=== PATIENT | male | born 1980 | race Caucasian/White ===

== ENCOUNTER 2023-10-11 14:31 | Outpatient (CLI) | payer BC, SELFPAY ==
--- NOTE | ~2023-10-11 | XR_ITS ---
XR shoulder LT min 2V Ordering provider: Perri Morrow, PAC History: . M25.512 - Pain in left shoulder, NKI . Comparison: None. FINDINGS: BONES: No acute fracture or dislocation. JOINT SPACES: The acromioclavicular joint is normal. The glenohumeral joint is normal. SOFT TISSUES: Normal. IMPRESSION: No acute osseous abnormality left shoulder. Reviewed, dictated and finalized at location A.
== END 2023-10-11 14:32 | disposition home or self-care (01) ==
PROVIDERS: PCP Family Medicine; Visit Provider Physician Assistant
DX: M25.512 Pain in left shoulder (principal)
CPT/HCPCS: 73030

== ENCOUNTER 2024-11-13 17:07 | Outpatient (CLI) | payer BC, SELFPAY ==
--- NOTE | ~2024-11-13 | CT_ITS ---
EXAMINATION: CT abdomen pelvis w con DATE: 11/13/2024 17:37 INDICATION: Right lower quadrant abdominal pain TECHNIQUE: Computed tomography (CT) of the abdomen and pelvis was performed with 100 mL Omnipaque-350 intravenous contrast. Automated exposure control and iterative reconstruction technique were employe d. The dose-length product was 1624.28 mGy-cm. COMPARISON: None FINDINGS: Subtle bands of discoid atelectasis/scarring in the left lower lobe and lingula. No pleural effusion. Heart size is normal. No pericardial effusion. Mild bilateral gynecomastia. Likely mild diffuse hepa tic steatosis although specificities decreased in the presence of intravenous contrast. Gallbladder, spleen, pancreas, bilateral adrenal glands and right kidney are normal. 3.7 cm cyst at the lower pole the left kidney. There is prominent inflammatory stranding surrounding the pancreas and the tip the cecum where there is associated edematous wall thickening. There are multiple calcite appendicoliths within the appendix which is dilated to 1.8 cm maximal diameter. There residual small foci of extralu gail gas in the right hemipelvis along the appendix, cecum and terminal ileum. Findings are most con sistent with perforated appendicitis. Minimal amount of free fluid in the deep pelvis. No evident org anized abscess. Bladder is normal. No pathologically enlarged abdominal or pelvic lymphadenopathy. Sm all fat-containing left inguinal hernia. Mild spondylosis in the lumbar and visualized mid to lower t horacic spine. IMPRESSION: 1. Perforated acute appendicitis. Dr. Moody discussed these findings with Dr. Melara at 6:00 PM. Reviewed, dictated and finalized at location A. IMPRESSION: 1. Perforated acute appendicitis. Dr. Moody discussed these findings with Dr Emery Melara at 6:00 PM.
--- OUTSIDE RECORDS SUMMARY | 2024-11-13 16:53 | XMS_ITS | Encounter Summary ---
Author Organization [facility] [employer] [facility] Address [address] [place] [address] Care Team Providers Care Recycle Driver Name Role Phone Irene Cade MD Primary Care Provider [phone] Encounter Details Date Type Department Care Team (Late st Contact Info) Description 08/29/2018 Lab Requisition 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 Gender Identity Not on file Sexual Orientation Not on file documented as of this encounter Plan of Treatment Not on file documented as of this encounter Procedures Procedure Name Priority Date/Time Associated Diagnosis Comments HEPATITIS B SURFACE AB, QUANT Routine 08/29/2018 3:30 PM CDT Encounter for pre-employment examination RUBEOLA IGG Routine 08/29/2018 3:30 PM CDT Encounter for pre-employment examination RUBELLA IGG Routine 08/29/2018 3:30 PM CDT Encounter for pre-employment examination VARICELLA ZOSTER IGG Routine 08/29/2018 3:30 PM CDT Encounter for pre-employment examination MUMPS IGG ANTIBODY Routine 08/29/2018 3: 30 PM CDT Encounter for pre-employment examination documented in this encounter Results * VARICELLA ZOSTER IGG (08/29/2018 3:30 PM CDT) VZV IGG Positive 08/30/2018 10:45 PM CDT [facility] Comment: Results suggest response to immunization or prior exposure to the virus. REFERENCE VALUE Vaccinated: Positive (>=1.1 AI) Unvaccinated: Negative (<=0.8 AI) VARICELLA IGG INDEX 5.7 08/30/2018 10:45 PM CDT [facility] Comment: Test Performed by: [facility] [place] [address] Blood Collection / Unknown 08/29/2018 3:30 PM CDT 08/29/2018 9:19 PM CDT Ernie Mann MD CHEMISTRY ORDERABLES Final R esult [facility] * RUBELLA IGG (08/29/2018 3:30 PM CDT) RUBELLA IGG IMMUNE Immune - Positive 08/29/2018 10:14 PM CDT [facility] Blood Collection / Unknown 08/29/2018 3:30 PM CDT 08/29/2018 9:19 PM CDT Narrative [facility] - 08/29/2018 10:14 PM CDT A positive result suggests response to immunization or prior exposure to the virus. Ernie Mann MD CHEMISTRY ORDERABLES Final R esult [facility] CLIA# [id number] [address] [place] [address] * MUMPS IGG ANTIBODY (08/29/2018 3:30 PM CDT) MUMPS IGG AB Positive 08/30/2018 10:45 PM CDT [facility] Comment: Results suggest response to immunization or prior exposure to the virus. REFERENCE VALUE Vaccinated: Positive (>=1.1 AI) Unvaccinated: Negative (<=0.8 AI) MUMPS IGG INDEX 3.7 9 10:45 PM CDT [facility] Comment: Test Performed by: [address] [address] Blood Collection / Unknown 08/29/2018 3:30 PM CDT 08/29/2018 9:19 PM CDT Ernie Mann MD CHEMISTRY ORDERABLES Final R esult [facility] * RUBEOLA IGG (08/29/2018 3:30 PM CDT) RUBEOLA IGG Positive 08/30/2018 10:45 PM CDT [facility] Comment: Results suggest response to immunization or prior exposure to the virus. REFERENCE VALUE Vaccinated: Positive (>=1.1 AI) Unvaccinated: Negative (<=0.8 AI) RUBEOLA IGG INDEX 4.8 08/30/2018 10:45 PM CDT [facility] Comment: Test Performed by: [address] [address] Blood Collection / Unknown 08/29/2018 3:30 PM CDT 08/29/2018 9:19 PM CDT Ernie Mann MD CHEMISTRY ORDERABLES Final R esult [facility] * (ABNORMAL) HEPATITIS B SURFACE AB, QUANT (08/29/2018 3:30 PM CDT) HEPATITIS B SURF AB,QN <4.0 mlU/mL 08/29/2018 10:18 PM CDT [facility] HEPATITIS B SURFACE AB INTERP Non-reacti ve(A) See Interp 08/29/2018 10:18 PM CDT [facility] Blood Collection / Unknown 08/29/2018 3:30 PM CDT 08/29/2018 9:19 PM CDT Narrative [facility] - 08/29/2018 10:18 PM CDT Patient does not have immunity to Hepatitis B virus. This assay is used to determine immune status to Hepatitis B as greater than or equal to 10 mIU/mL as per CDC guidelines (MMWR:vol 55: RR-16, 2006). Ernie Mann MD CHEMISTRY ORDERABLES Final R esult Performing Organization Address City/[facility]/ZIP Co de Phone Number [facility] CLIA# [id number] [address] [place] [address] documented in this encounter Visit Diagnoses Diagnosis Encounter for pre-employment examination Health examination of defined subpopulation documented in this encounter Care Teams Recycle Driver Relationship Specialty Start Date End Date Irene Cade MD [address] [place] [address] PCP - General Family Practice 05/22/19 documented as of this encounter
--- OUTSIDE RECORDS SUMMARY | 2024-11-13 16:53 | XMS_ITS | Clinical Summary ---
Author Organization [facility] Address [address] [place] [address] Care Team Providers Care Principal Technical Writer Name Role Phone Yosi Melara MD Primary Care Provider [phone] Social History Tobacco Use Types Packs/Day Years Used Date Smoking Tobacco: Never Assessed Sex and Gender Information Value Date Recorded Sex Assigned at Not on file Legal Sex Male 7:36 PM CDT Gender Identity Not on file Sexual Orientation Not on file Plan of Treatment Health Maintenance Due Date Last Done Comments Annual Physical 02/02/1984 Hepatitis C 1999 DTaP, Tdap and Td Vaccines ( 1 - Tdap) 02/02/2000 Hepatitis B Vaccines (1 of 3 - 19+ 3-dose series) 02/02/2000 HPV Vaccines (1 - 3-dose SCD M series) 02/02/2008 COVID-19 Vaccine (2023-2 5 season) 2023 Meningococcal B Vaccine Aged Out No l onger eligible based on patient's age to complete this topic Meningococcal Vaccine Aged Out No debbie nellie eligible based on patient's age to complete this topic Pneumococcal Vaccine: Pediat rics (0 to 5 Years) and At-Risk Patients (6 to 49 Years) Aged Out No longer eligible b ased on patient's age to complete this topic RSV Immunizations Under 20 Months Aged Out No longer eligible based on patient's age to complete this topic Care Teams Principal Technical Writer Relationship Specialty Start Date End Date Yosi Melara MD [address] [place] [phone] PCP - General 12/27/14
--- OUTSIDE RECORDS SUMMARY | 2024-11-13 16:54 | XMS_ITS | Clinical Summary ---
Author Organization [facility] Address [address] [address] Phone Care Team Providers Care Inspector Water Pollution Control Name Role Phone Irene Cade MD Primary Care Provider [phone] Allergies Active Allergy Reactions Criticality Noted Date Comments Penicillins Rash Low 02/05/2016 Medications No known medications Active Problems Problem Noted Date Diagnosed Date Mixed hyperlipidemia 05/22/2019 Immunizations Immunization Administration Dates Next Due Influenza Seasonal Unspecified Formulation IM ,02/06/2019 Family History Medical History Relation Name Comments Healthy Daughter COPD Father High Cholesterol Father Unknown Maternal Grandfather Unknown Maternal Grandmother Diabetes Mother Unknown Paternal Grandfather Unknown Paternal Grandmother Healthy Son 1 Healthy Son 2 Relation Name Status Comments Daughter Alive Father Alive Maternal Grandfather Maternal Grandmother Mother Alive Paternal Grandfather Paternal Grandmother Son 1 Alive Son 2 Alive Social History Tobacco Use Types Packs/Day Years Used Date Smoking Tobacco: Never Smokeless Tobacco: Never Alcohol Use Standard Drinks/Week Comments Yes 0 (1 standard drink = 0.6 oz pur e alcohol) Sex and Gender Information Value Date Recorded Sex Assigned at Not on file Legal Sex Male 2:44 PM PERSONAL INJURY LITIGATION PARALEGAL Gender Identity Not on file Sexual Orientation Not on file 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 file Not on file Not on f ile Last Filed Vital Signs Vital Sign Reading Time Taken Comments Blood Pressure 112/64 05/22/2019 1:19 PM PERSONAL INJURY LITIGATION PARALEGAL Pulse 76 05/22/2019 1:19 PM PERSONAL INJURY LITIGATION PARALEGAL Temperature - - Respiratory Rate - - Oxygen Saturation 96% 05/22/2019 1:19 PM PERSONAL INJURY LITIGATION PARALEGAL Inhaled Oxygen Concentration - - Weight 115.2 kg (254 lb) 05/22/2019 1:19 PM PERSONAL INJURY LITIGATION PARALEGAL Height 177.8 cm (5' 10) 05/22/2019 1:19 PM PERSONAL INJURY LITIGATION PARALEGAL Body Mass Index 36.45 05/22/2019 1:19 PM PERSONAL INJURY LITIGATION PARALEGAL Plan of Treatment Health Maintenance Due Date Last Done Comments HPV VACCINES (1 - Male 3-dose series) 02/02/1996 DTAP/TDAP/TD VACCINES (1 - Tdap) 02/02/2000 HEPATITIS B VACCINES (1 of 3 - 19+ 3-dose series) 02/02/2000 INFLUENZA VACCINE (#1) 2024 02/22/2019, 2018 Care Teams Inspector Water Pollution Control Relationship Specialty Start Date End Date Irene Cade MD [address] [place] [address] PCP - General Family Practice 05/22/19
--- OUTSIDE RECORDS SUMMARY | 2024-11-13 16:54 | XMS_ITS | Clinical Summary ---
Author Organization [facility] Address [address] [place] [address] Phone Care Team Providers Care Biztalk Architect Name Role Phone Yosi Melara MD Primary Care Provider [phone] Allergies Active Allergy Reactions Criticality Noted Date Comments Penicillins Unknown 02/05/2016 Medications tamsulosin (FLOMAX) 0.4 MG Capsule 3 2016 Active zolpidem (AMBIEN) 10 MG Tablet TK 1/2 TO 1 T PO QHS PRN 0 2016 Active tamsulosin (FLOMAX) 0.4 MG Capsule Take 1 Cap by mouth daily. 90 Cap 3 02/05/2016 Active Active Problems Problem Noted Date Diagnosed Date Orchitis, epididymitis, and epididymo-orchitis 1 Family History Medical History Relation Name Comments No Known Problems Father No Known Problems Mother Relation Name Status Comments Father Alive Mother Alive Social History Tobacco Use Types Packs/Day Years Used Date Smoking Tobacco: Never Tobacco Cessation:Counseling Given: No Alcohol Use Standard Drinks/Week Comments Yes 0 (1 standard drink = 0.6 oz pur e alcohol) Sexually Active Control Partners Comments Yes Sex and Gender Information Value Date Recorded Sex Assigned at Not on file Legal Sex Male 2:46 PM CDT Gender Identity Not on file Sexual Orientation Not on file Last Filed Vital Signs Vital Sign Reading Time Taken Comments Blood Pressure 120/78 02/05/2016 3:02 PM CDT Pulse 77 02/05/2016 3:02 PM CDT Temperature 36.8 C (98.2 F) 02/05/2016 3:02 PM CDT Respiratory Rate 18 02/05/2016 3:02 PM CDT Oxygen Saturation 98% 02/05/2016 3:02 PM CDT Inhaled Oxygen Concentration - - Weight 99.8 kg (220 lb) 02/05/2016 3:02 PM CDT Height 177.8 cm (5' 10) 02/05/2016 3:02 PM CDT Body Mass Index 31.57 02/05/2016 3:02 PM CDT Plan of Treatment Health Maintenance Due Date Last Done Comments Hepatitis C Virus (HCV) Screening 1981 TdaP Immunization 1981 Human Papillomavirus (HPV) Immunization (1 - Male 3-dose series) 02/02/1996 Hepatitis B Immunization (1 of 3 - 19+ 3-dose series) 02/02/2000 SARS-COV-2 Immunization (1 - season) 2023 Influenza Immunization (#1) 2024 Respiratory Syncytial Virus (RSV) Immunization (Adult) (1 - 1-dose 75+ series) 02/02/2056 Meningococcal Immunization (ACWY) Aged Out No longer eligible based on patient's age to complete this topic Pneumococcal Immunization Combined Aged Out No longer eligible based on patient's age to complete this topic Rotavirus Immunization Aged Out No lo nger eligible based on patient's age to complete this topic Insurance MEDICAID [employer] Care Teams Biztalk Architect Relationship Specialty Start Date End Date Yosi Melara MD [address] [place] [phone] PCP - General Family Medicine 02/05/16
--- OUTSIDE RECORDS SUMMARY | 2024-11-13 17:11 | XMS_ITS | Continuity of Care Document ---
Author Organization [facility] Address [address] [place] [address] Phone Care Team Providers Care Paper Cutter Name Role Phone Regine Estevez PT Unavailable Unavailab le Procedures Procedure Date Therapeutic Activities Neuromuscular Re-Ed Manual Therapy Therapeutic Exercise Therapeutic Activities Therapeutic Exercise Neuromuscular Re-Ed Manual Therapy Therapeutic Activities Neuromuscular Re-Ed Therapeutic Exercise Manual Therapy Therapeutic Activities Neuromuscular Re-Ed Therapeutic Exercise Manual Therapy Therapeutic Activities Neuromuscular Re-Ed Therapeutic Exercise Manual Therapy PT Evaluation Moderate Complexity Therapeutic Activities Therapeutic Exercise Manual Therapy Advance Directives Directive Yes / No Effective Date File Name No Information Encounters Encounter Description Practice Location Reason(s) For Visit Diagnoses Date Provider Providers Copied on Encounter [facility], [address], [place], [place], [id number], tel:[phone] [place] No Information Bandar Weiner. . Referring Provider: Perri Morrow, [address] [facility], [place], [address]. tel:[phone] [facility] [address] [facility], [place], [place], [id number], tel:[phone] [place] No Information Dockins-H all Regine. . Referring Provider: Perri Morrow, [address] [facility], [place], [address]. tel:[phone] [facility] [address], [place], [place], [id number], tel:[phone] [place] No Information Dockins-H all Regine. . Referring Provider: Perri Morrow, [place], [address]. tel:[phone] [facility] [address] [place] [address], [place], [place], [id number], tel:[phone] [place] No Information Dockins-H all Regnie. . Referring Provider: [place], [address]. tel:[phone] [facility] [address] [address], [place], [place], [id number], tel:[phone] [place] No Information Dockins-H all Regine. . Referring Provider: [place], [address]. tel:[phone] [facility] [address] [address], [place], [place], [id number], tel:[phone] [place] No Information Dockins-H all Regine. . Referring Provider: [place], [address]. tel:[phone] Family History Family Member Type Diagnosis Age At Onset No Information Payers Payer name Insurance type Covered constitution party ID Minda byrne(s) [facility] [id number] Social History Type Description Quantity Date Captured Comments Sex Male Smoking Status No Information Chief Complaint And Reason For Visit No Information Reason For Referral Reason For Referral No Information History Of Present Illness Encounter Date Complaint History Of Prese nt Illness No Information Functional Status Date Functional Assessmen t No Information Instructions Date Instruction Additional Infor mation No Information Assessments Type Assessment Date No Information Patient Care Teams Name Effective Dates (start - stop) Status Members No Information
[2024-11-13 17:52] LABS: Hematocrit 43.4 % (42.0-52.0); Hemoglobin 14.5 g/dL (14.0-18.0); Immature Granulocyte Percent A 0.4 % (0-0.5); Lymphocytes Absolute Auto 2.39 K/mm3 (0.9-3.2); Mean Corpuscular HGB Conc 33.4 g/dl (32-36); Mean Corpuscular Hemoglobin 30.5 pg (26-34); Mean Corpuscular Volume 91.4 fl (80-100); Nucleated Red Blood Cells Absolute Auto 0.000 K/mm3 (0.0-0.012); Nucleated Red Blood Cells Perc 0.0 % (0.0-0.2); Platelet Count Result 195 k/mm3 (150-375); Red Blood Count 4.75 M/mm3 (4.6-6.20); White Blood Count 13.5 K/mm3 (4.5-10.0)
== END 2024-11-13 17:08 | disposition home or self-care (01) ==
PROVIDERS: PCP Family Medicine; Visit Provider Family Medicine
DX: R10.31 Right lower quadrant pain (principal)
CPT/HCPCS: 36415; 74177; 85025; Q9967

== ENCOUNTER 2024-11-13 18:09 | Inpatient (IN) | payer BC, SELFPAY ==
[2024-11-13] VITALS (11 sets, daily range): BP systolic 110–145; BP diastolic 53–80; PULSE 94–112; RESP 16–26; TEMP 36.7–39.2; O2SAT 92–100; BMI 40.3
--- NOTE | ~2024-11-13 | XR_ITS ---
XR chest 2V 11/15/2024 11:21 Indication: Postop fever. Cough. Weakness. Procedure: 2 view chest Comparison: 07/30/2015 Findings: Left basilar airspace disease may represent atelectasis or developing pneumonia. Shallow in spiration. Right lung clear. Heart size normal for technique. Impression: 1: Left basilar airspace disease may represent atelectasis or developing pneumonia. Reviewed, dictated and finalized at location A. Impression: 1: Left basilar airspace disease may represent atelectasis or developing pneumo tamie.
--- OUTSIDE RECORDS SUMMARY | 2024-11-13 18:12 | XMS_ITS | Clinical Summary ---
Author Organization [facility] Address [address] [place] [address] Phone Care Team Providers Care Retort Forker Name Role Phone Yosi Melara MD Primary Care Provider Allergies Active Allergy Reactions Criticality Noted Date [...] Insurance MEDICAID [employer] Care Teams Retort Forker Relationship Specialty Start Date End Date Yosi Melara MD [address] [place] [phone] PCP - General Family Medicine 02/05/16
--- OUTSIDE RECORDS SUMMARY | 2024-11-13 18:12 | XMS_ITS | Clinical Summary ---
Author Organization [facility] Address [address] [place] [address] Care Team Providers Care Shirt Closer Name Role Phone Yosi Melara MD Primary Care Provider [phone] Social History Tobacco Use Types Packs/Day Years [...] age to complete this topic Care Teams Shirt Closer Relationship Specialty Start Date End Date Yosi Melara MD [address] [place] [address] PCP - General 12/27/14
--- OUTSIDE RECORDS SUMMARY | 2024-11-13 18:12 | XMS_ITS | Continuity of Care Document ---
Author Organization [facility] Address [address] [place] [address] Phone Care Team Providers Care Correction Warden Name Role Phone Regine Estevez PT Unavailable [...] Diagnoses Date Provider Providers Copied on Encounter [facility], [address], [place], [place], [id number], tel:[phone] [place] No Information Bandar Weiner. . Referring Provider: Perri Morrow, [address] [facility], [place], [address]. tel:[phone] [facility] [address] [facility], [place], [place], [id number], tel:[phone] [place] No Information Dockins-H all Regine. . Referring Provider: Perri Morrow, [address] [facility], [place], [address]. tel:[phone] [facility] [address], [place], [place], [id number], tel:[phone] [place] No Information Dockins-H all Regine. . Referring Provider: Perri Morrow, [place], [address]. tel:[phone] [facility] [address] [place] [address], [place], [place], [id number], tel:[phone] [place] No Information Dockins-H all Regine. . Referring Provider: [place], [address]. tel:[phone] [facility] [address] [address], [place], [place], [id number], tel:[phone] [place] No Information Dockins-H all Regine. . Referring Provider: [place], [address]. tel:[phone] [facility] [address] [address], [place], [place], [id number], tel:[phone] [place] No Information Dockins-H all Regine. . Referring Provider: [place], [address]. tel:[phone] Family History Family Member Type Diagnosis Age At Onset No Information Payers Payer name Insurance type Covered alliance party ID Minda byrne(s) [facility] [id number] Social History Type Description Quantity Date Captured [...]
--- OUTSIDE RECORDS SUMMARY | 2024-11-13 18:12 | XMS_ITS | Clinical Summary ---
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 Not on f ile Last Filed Vital Signs Vital Sign Reading Time Taken Comments Blood Pressure 112/64 05/22/2019 1:19 PM HARDWARE TEST ENGINEER Pulse 76 05/22/2019 1:19 PM HARDWARE TEST ENGINEER Temperature - - Respiratory Rate - - Oxygen Saturation 96% 05/22/2019 1:19 PM HARDWARE TEST ENGINEER Inhaled Oxygen Concentration - - Weight 115.2 kg (254 lb) 05/22/2019 1:19 PM HARDWARE TEST ENGINEER Height 177.8 cm (5' 10) 05/22/2019 1:19 PM HARDWARE TEST ENGINEER Body Mass Index 36.45 05/22/2019 1:19 PM HARDWARE TEST ENGINEER Plan of Treatment Health Maintenance Due Date Last Done Comments HPV VACCINES (1 - Male 3-dose series) 02/02/1996 DTAP/TDAP/TD VACCINES (1 - Tdap) 02/02/2000 HEPATITIS B VACCINES (1 of 3 - 19+ 3-dose series) 02/02/2000 INFLUENZA VACCINE (#1) 2024 02/22/2019, 2018 Care Teams Electric Milkers Installer Relationship Specialty Start Date End Date Irene Cade MD [address] [place] [address] PCP - General Family Practice 05/22/19
--- OUTSIDE RECORDS SUMMARY | 2024-11-13 18:12 | XMS_ITS | Encounter Summary ---
Author Organization [facility] Address [address] [place] [address] Care Team Providers Care Production Control Pegboard Clerk Name Role Phone Irene Cade MD Primary Care Provider [phone] Encounter Details Date Type Department Care Team (Late st Contact Info) Description 08/29/2018 Lab Requisition [facility] Laboratory Services S [facility] [address] [place] [address] [place] [address] [address] [place] [id number] Encounter for pre-employment examination Social History Tobacco Use Types Packs/Day Years Used Date Smoking Tobacco: Never Assessed Sex and Gender Information Value Date Recorded Sex Assigned at Not on file Legal Sex Male 2:44 PM DRUG ENFORCEMENT AGENT Gender Identity Not on file Sexual Orientation [...] VZV IGG Positive 08/30/2018 10:[address] [facility] Comment: Results suggest response to immunization or prior exposure to the virus. REFERENCE VALUE Vaccinated: Positive (>=1.1 AI) Unvaccinated: Negative (<=0.8 AI) VARICELLA IGG INDEX 5.7 08/30/2018 10:[address] [facility] Comment: Test Performed by: [facility] [place] [address] Blood Collection / Unknown 08/29/2018 3:30 PM CDT 08/29/2018 9:19 PM CDT Ernie Mann MD CHEMISTRY ORDERABLES Final R esult [facility] * RUBELLA IGG (08/29/2018 3:30 PM CDT) RUBELLA IGG IMMUNE Immune - Positive 08/29/2018 10:14 PM CDT [facility] [employer] [facility] Blood Collection / Unknown 08/29/2018 3:30 PM CDT 08/29/2018 9:19 PM CDT Narrative [facility] [employer] [facility] - 08/29/2018 10:14 PM CDT A positive result suggests response to immunization or prior exposure to the virus. Ernie Mann MD CHEMISTRY ORDERABLES Final R esult [facility] [employer] [facility] CLIA# [id number] [address] [place] [address] * MUMPS IGG ANTIBODY (08/29/2018 3:30 PM CDT) MUMPS IGG AB Positive 08/30/2018 10:[address] [facility] Comment: Results suggest response to immunization or prior exposure to the virus. REFERENCE VALUE Vaccinated: Positive (>=1.1 AI) Unvaccinated: Negative (<=0.8 AI) MUMPS IGG INDEX 3.7 9 10:[address] [facility] Comment: Test Performed by: [address] [address] Blood Collection / Unknown 08/29/2018 3:30 PM CDT 08/29/2018 9:19 PM CDT Ernie Mann MD CHEMISTRY ORDERABLES Final R esult [facility] * RUBEOLA IGG (08/29/2018 3:30 PM CDT) RUBEOLA IGG Positive 08/30/2018 10:[address] [facility] Comment: Results suggest response to immunization or prior exposure to the virus. REFERENCE VALUE Vaccinated: Positive (>=1.1 AI) Unvaccinated: Negative (<=0.8 AI) RUBEOLA IGG INDEX 4.8 08/30/2018 10:[address] [facility] Comment: Test Performed by: [address] [address] Blood Collection / Unknown 08/29/2018 3:30 PM CDT 08/29/2018 9:19 PM CDT Ernie Mann MD CHEMISTRY ORDERABLES Final R esult [facility] * (ABNORMAL) HEPATITIS B SURFACE AB, QUANT (08/29/2018 3:30 PM CDT) HEPATITIS B SURF AB,QN <4.0 mlU/mL 08/29/2018 10:18 PM CDT [facility] [employer] [facility] HEPATITIS B SURFACE AB INTERP Non-reacti ve(A) See Interp 08/29/2018 10:18 PM CDT [facility] [employer] [facility] Blood Collection / Unknown 08/29/2018 3:30 PM CDT 08/29/2018 9:19 PM CDT Narrative [facility] [employer] [facility] - 08/29/2018 10:18 PM CDT Patient does not have immunity to Hepatitis B virus. This assay is used to determine immune status to Hepatitis B as greater than or equal to 10 mIU/mL as per CDC guidelines (MMWR:vol 55: RR-16, 2006). Ernie Mann MD CHEMISTRY ORDERABLES Final R esult Performing Organization Address City/[facility]/ZIP Co de Phone Number [facility] [employer] [facility] CLIA# [id number] [address] [place] [address] documented in this encounter Visit Diagnoses Diagnosis Encounter for pre-employment examination Health examination of defined subpopulation documented in this encounter Care Teams Production Control Pegboard Clerk Relationship Specialty Start Date End Date Irene Cade MD [address] [place] [address] PCP - General Family Practice 05/22/19 documented as of this encounter
[2024-11-13 18:30] LABS: Hematocrit 45.3 % (42.0-52.0); Hemoglobin 15.3 g/dL (14.0-18.0); Immature Granulocyte Percent A 0.5 % (0-0.5); Lymphocytes Absolute Auto 2.02 K/mm3 (0.9-3.2); Mean Corpuscular HGB Conc 33.8 g/dl (32-36); Mean Corpuscular Hemoglobin 30.7 pg (26-34); Mean Corpuscular Volume 90.8 fl (80-100); Nucleated Red Blood Cells Absolute Auto 0.000 K/mm3 (0.0-0.012); Nucleated Red Blood Cells Perc 0.0 % (0.0-0.2); Platelet Count Result 215 k/mm3 (150-375); Red Blood Count 4.99 M/mm3 (4.6-6.20); White Blood Count 13.1 K/mm3 (4.5-10.0)
--- NOTE | 2024-11-13 18:34 | ED.ABDPAIN ---
HPI - Abdominal Pain General Chief Complaint: Abdominal Pain Stated Complaint: RUQ pain since last night Time Seen by Provider: 11/13/24 18:28 History of Present Illness HPI narrative: 44-year-old male with remote history of type 2 diabetes, hypertension and hyperlipidemia presents emergency department for ruptured appendicitis. Patient states yesterday he began developing pain to his right lower quadrant with associated nausea. Throughout the night he was having difficulty sleeping and states the pain worsened throughout the day. He contacted his PCP, Dr. Melara, who ordered an outpatient stat CT abdomen pelvis which revealed a perforated acute appendicitis. The patient was advised to come directly to the ED. His is at bedside and states his pain is acutely worsened over the past 45 minutes with associated nausea. He denies vomiting, fevers. No prior abdominal surgeries. He states the pain is worse with any movement of his abdomen. Patient states he is not currently on any treatment for diabetes, hypertension and hyperlipidemia because he lost weight and has not required treatment since. Related Data Home Medications ?Medication ?Instructions ?Recorded ?Confirmed ?Last Taken ?Type ascorbic acid (vitamin C) 500 mg mg PO 04/28/22 11/13/24 Unknown History capsule cod liver oil 5 ml PO DAILY 04/28/22 11/13/24 Unknown History magnesium oxide 400 mg PO DAILY 04/28/22 11/13/24 Unknown History mecobalamin (vitamin B12) 1,000 1,000 mcg sublingual DAILY 04/28/22 11/13/24 Unknown History mcg disintegrating tablet,sublingual omega 7-qwa-fqg-fish oil 1,200 mg cap PO 04/28/22 11/13/24 Unknown History (144 mg-216 mg) capsule (Fish Oil) zinc gluconate 100 mg tablet 100 mg PO DAILY 04/28/22 11/13/24 Unknown History Allergies Allergy/AdvReac Type Severity Reaction Status Date / Time latex Allergy Unknown Rash Verified 11/13/24 15:45 Penicillins Allergy Unknown Rash Verified 11/13/24 15:45 Review of Systems Review of Systems: All systems reviewed & are unremarkable except as noted in HPI and below PMFSH Past Medical History Medical History Type 2 diabetes mellitus without complications Insomnia Obesity Perianal venous thrombosis Testicular hypofunction Hyperlipidemia, unspecified Essential (primary) hypertension Family History Family History Grandparent Family history of obesity Diabetes mellitus Mother Family history of obesity Family history of mental disorder Depression Family history of diabetes mellitus in first degree relative Social History Social History Smoking status: Never smoker Alcohol intake: current Substance use: never Lack of Transportation: No Lack of Food: Never True Current Housing: I Have Housing Concerned About Future Housing: No Difficulty Paying Gas/Electric Bills: No Difficulty Paying for Meds: No Currently Unemployed: No Difficulty w/ Childcare or Family Care: No Living arrangements: with family Occupation/Education: occupation Gender identity (if verbalized by the patient): Male Sexual Orientation (if Verbalized by the Patient): Straight or Heterosexual Spiritual care concerns: No Exam Narrative: GENERAL: Ill-appearing, diaphoretic HEAD: Normocephalic, atraumatic. EYES: PERRLA and EOMI. ENT: Nares clear, no rhinorrhea or epistaxis. Mucous membranes moist. NECK: Supple. CHEST: Clear to auscultation. No respiratory distress. HEART: Regular rate and rhythm. No murmur heard. Normal peripheral pulses. ABDOMEN: Quiet bowel sounds. Diffuse abdominal tenderness with positive rebound. Voluntary guarding. No rigidity. Negative heel tap. EXTREMITIES: Normal range of motion. No edema. SKIN: Warm, dry, no rash. NEURO: No focal deficits. Alert and oriented x3 Course Vital Signs Vital signs: Vital Signs Temperature 98.4 F 11/13/24 18:16 Pulse Rate 94 11/13/24 18:16 Respiratory Rate 16 11/13/24 18:16 Blood Pressure 127/69 11/13/24 18:16 Pulse Oximetry 96 11/13/24 18:16 Temperature 98.8 F 11/13/24 21:50 Pulse Rate 107 H 11/13/24 22:20 Respiratory Rate 18 11/13/24 22:20 Blood Pressure 125/80 11/13/24 22:20 Pulse Oximetry 100 11/13/24 22:20 Oxygen Delivery Simple Face Mask 11/13/24 22:20 Oxygen Flow Rate 8 11/13/24 22:20 MDM - Abdominal Pain MDM Narrative Medical decision making narrative: 44-year-old male presents to the emergency department for acute perforated appendicitis found on outpatient CT today. See HPI for further history. Triage vitals are stable. Patient is afebrile. He is diaphoretic and ill appearing. Abdomen with diffuse tenderness and peritoneal signs. CBC with leukocytosis of 13.1. Chemistries with hyperglycemia of 147, normal bicarb and anion gap. Lactic acid and blood cultures are pending. Patient has a penicillin allergy. Discussed with general surgeon, Dr. Bain, who advises aztreonam and Flagyl for antibiotics. Patient also given fluids, morphine and Zofran. Plan for Dr. Bain to take patient directly to OR. Advises admission to hospitalist. Discussed with hospitalist Veronica SMITH, who accepts admission. Lab Data 11/13/24 18:21 11/13/24 18:21 Labs: Lab Results 11/13/24 11/13/24 Range/Units 18:21 18:54 WBC 13.1 H (4.5-10.0) K/mm3 RBC 4.99 (4.6-6.20) M/mm3 Hgb 15.3 (14.0-18.0) g/dL Hct 45.3 (42.0-52.0) % MCV 90.8 (80-100) fl MCH 30.7 (26-34) pg MCHC 33.8 (32-36) g/dl RDW 12.9 (11.5-14.5) % Plt Count 215 (150-375) k/mm3 MPV 8.9 (7.4-10.4) fl Immature Gran % (Auto) 0.5 (0-0.5) % Neut % (Auto) 76.4 H (45.5-73.1) % Lymph % (Auto) 15.4 L (18.3-44.2) % Caroline % (Auto) 7.2 (2.6-8.5) % Eos % (Auto) 0.2 (0-4.4) % Baso % (Auto) 0.3 (0.2-1.2) % Lymph # (Auto) 2.02 (0.9-3.2) K/mm3 Caroline # (Auto) 0.9 H (0.1-0.6) K/mm3 Eos # (Auto) 0.0 (0-0.3) K/mm3 Baso # (Auto) 0.0 (0.0-0.1) K/mm3 Abs Immat Gran (auto) 0.07 H (0.00-0.031) K/mm3 Absolute Neuts (auto) 10.0 H (1.3-6.7) K/mm3 Absolute Nucleated RBC 0.000 (0.0-0.012) K/mm3 Nucleated RBC % 0.0 (0.0-0.2) % Sodium 136 L (137-145) mmol/L Potassium 4.5 (3.4-5.0) mmol/L Chloride 99 (98-107) mmol/L Carbon Dioxide 27 (22-30) mmol/L Anion Gap 10 (4-12) mmol/L BUN 18 (9-20) mg/dL Creatinine 1.05 (0.7-1.3) mg/dL Estim Creat Clear Calc 106 ml/min Estimated GFR > 60 (59 - ) Glucose 147 H (65-110) mg/dL Lactic Acid 1.6 (0.7-2.0) mmol/L Calcium 10.0 (8.4-10.2) mg/dL Total Bilirubin 0.7 (0.2-1.3) mg/dL AST 27 (17-59) U/L ALT 24 (6-50) U/L Alkaline Phosphatase 81 (38-126) U/L Total Protein 8.5 H (6.3-8.2) g/dL Albumin 4.8 (3.5-5.1) g/dL Lipase 23 (23-300) U/L Discharge Plan Discharge Clinical Impression: Acute perforated appendicitis Patient Disposition: Still a Patient Condition: Serious
[2024-11-13] MEDS: SODIUM CHLORIDE 0.9% IV 1,000 ML 999 ML IV CONT ×2 (18:41→19:23)
[2024-11-13] MEDS: MORPHINE SULFATE (*CRX) 4 MG/ML INJ IV PUSH (18:41)
[2024-11-13] MEDS: ONDANSETRON INJ 4 MG/2 ML VIAL IV PUSH (18:41)
[2024-11-13 18:51] LABS: Alanine Aminotransferase 24 U/L (6-50); Albumin Level 4.8 g/dL (3.5-5.1); Alkaline Phosphatase 81 U/L (38-126); Anion Gap 10 mmol/L (4-12); Aspartate Amino Transferase 27 U/L (17-59); Bilirubin,Total 0.7 mg/dL (0.2-1.3); Blood Urea Nitrogen 18 mg/dL (9-20); Calcium 10.0 mg/dL (8.4-10.2); Carbon Dioxide 27 mmol/L (22-30); Chloride 99 mmol/L (98-107); Estimated CRCL calculation 106 ml/min; Estimated Glomerular Filt Rate > 60; Glucose 147 mg/dL (65-110); Lipase 23 U/L (23-300); Potassium 4.5 mmol/L (3.4-5.0); Sodium 136 mmol/L (137-145); Total Protein 8.5 g/dL (6.3-8.2)
--- OUTSIDE RECORDS SUMMARY | 2024-11-13 19:01 | XMS_ITS | Continuity of Care Document ---
Author Organization [facility] Address [address] [place] [address] Phone Care Team Providers Care Candle Wrapping Machine Operator Name Role Phone Regine Estevez PT Unavailable [...] Diagnoses Date Provider Providers Copied on Encounter [facility], [address], [place], [place], [id number], tel:[phone] [place] No Information Bandar Weiner. . Referring Provider: Perri Morrow, [address], [place], [address]. tel:[phone] [facility] [address] [facility], [place], [place], [id number], tel:[phone] [place] No Information [facility] all Regine. . Referring Provider: Perri Morrow, [address], [place], [address]. tel:[phone] [facility] [address], [place], [place], [address], tel:[phone] [place] No Information [facility] all Regine. . Referring Provider: Perri Morrow, [place], [address]. tel:[phone] [facility] [address] [place] [address], [place], [place], [address], tel:[phone] [place] No Information [facility] all Regine. . Referring Provider: [place], [address]. tel:[phone] [facility] [address] [address], [place], [place], [address], tel:[phone] [place] No Information [facility] all Regine. . Referring Provider: [place], [address]. tel:[phone] [facility] [address] [address], [place], [place], [address], tel:[phone] [place] No Information [facility] all Regine. . Referring Provider: [place], [address]. tel:[phone] Family History Family Member Type Diagnosis Age At Onset No Information Payers Payer name Insurance type Covered constitution party ID Minda byrne(s) [facility] [id number] Social History Type Description Quantity Date Captured [...]
--- OUTSIDE RECORDS SUMMARY | 2024-11-13 19:01 | XMS_ITS | Clinical Summary ---
Author Organization [facility] Address [address] [place] [address] Care Team Providers Care Operations Support Manager Name Role Phone Yosi Melara MD Primary Care Provider [phone] Social History Tobacco Use Types Packs/Day Years [...] age to complete this topic Care Teams Operations Support Manager Relationship Specialty Start Date End Date Yosi Melara MD [address] [place] [address] PCP - General 12/27/14
--- OUTSIDE RECORDS SUMMARY | 2024-11-13 19:01 | XMS_ITS | Encounter Summary ---
Author Organization [employer] [facility] Address [address] [place] [address] Care Team Providers Care Debt Recovery Officer Name Role Phone Irene Cade MD Primary Care Provider [phone] Encounter Details Date Type Department Care Team (Late st Contact Info) Description 08/29/2018 Lab Requisition [facility] Laboratory Services S [facility] [address] [place] [address] [place] [address] [address] [place] [address] Encounter for pre-employment examination Social History Tobacco Use Types Packs/Day Years Used Date Smoking Tobacco: Never Assessed Sex and Gender Information Value Date Recorded Sex Assigned at Not on file 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 REFERENCE VALUE Vaccinated: Positive (>=1.1 AI) Unvaccinated: Negative (<=0.8 AI) VARICELLA IGG INDEX 5.7 08/30/2018 10:45 PM CDT [facility] Comment: Test Performed by: [facility] [place] [address] Blood Collection / Unknown 08/29/2018 3:30 PM CDT 08/29/2018 9:19 PM CDT Ernie Mann MD CHEMISTRY ORDERABLES Final R esult [facility] * RUBELLA IGG (08/29/2018 3:30 PM CDT) RUBELLA IGG IMMUNE Immune - Positive 08/29/2018 10:14 PM CDT [facility] Blood Collection / Unknown 08/29/2018 3:30 PM CDT 08/29/2018 9:19 PM CDT Narrative [facility] - 08/29/2018 10:14 PM CDT A positive result suggests response to immunization or prior exposure to the virus. Ernie Mann MD CHEMISTRY ORDERABLES Final R esult [facility] CLIA# [id number] [address] [place] [address] * MUMPS IGG ANTIBODY (08/29/2018 3:30 PM CDT) MUMPS IGG AB Positive 08/30/2018 10:45 PM CDT [facility] Comment: Results suggest response to immunization or prior exposure to the virus. REFERENCE VALUE Vaccinated: Positive (>=1.1 AI) Unvaccinated: Negative (<=0.8 AI) MUMPS IGG INDEX 3.7 9 10:45 PM CDT [facility] Comment: Test Performed by: [address] [address] Blood Collection / Unknown 08/29/2018 3:30 PM CDT 08/29/2018 9:19 PM CDT Ernie Mann MD CHEMISTRY ORDERABLES Final R esult [facility] * RUBEOLA IGG (08/29/2018 3:30 PM CDT) RUBEOLA IGG Positive 08/30/2018 10:45 PM CDT [facility] Comment: Results suggest response to immunization or prior exposure to the virus. REFERENCE VALUE Vaccinated: Positive (>=1.1 AI) Unvaccinated: Negative (<=0.8 AI) RUBEOLA IGG INDEX 4.8 08/30/2018 10:45 PM CDT [facility] Comment: Test Performed by: [address] [address] Blood Collection / Unknown 08/29/2018 3:30 PM CDT 08/29/2018 9:19 PM CDT Ernie Mann MD CHEMISTRY ORDERABLES Final R esult [facility] * (ABNORMAL) HEPATITIS B SURFACE AB, QUANT (08/29/2018 3:30 PM CDT) HEPATITIS B SURF AB,QN <4.0 mlU/mL 08/29/2018 10:18 PM CDT [facility] HEPATITIS B SURFACE AB INTERP Non-reacti ve(A) See Interp 08/29/2018 10:18 PM CDT [facility] Blood Collection / Unknown 08/29/2018 3:30 PM CDT 08/29/2018 9:19 PM CDT Narrative [facility] - 08/29/2018 10:18 PM CDT Patient does not have immunity to Hepatitis B virus. This assay is used to determine immune status to Hepatitis B as greater than or equal to 10 mIU/mL as per CDC guidelines (MMWR:vol 55: RR-16, 2006). Ernie Mann MD CHEMISTRY ORDERABLES Final R esult Performing Organization Address City/[facility]/ZIP Co de Phone Number [facility] CLIA# [id number] [address] [place] [address] documented in this encounter Visit Diagnoses Diagnosis Encounter for pre-employment examination Health examination of defined subpopulation documented in this encounter Care Teams Debt Recovery Officer Relationship Specialty Start Date End Date Irene Cade MD [address] [place] [address] PCP - General Family Practice 05/22/19 documented as of this encounter
--- OUTSIDE RECORDS SUMMARY | 2024-11-13 19:01 | XMS_ITS | Clinical Summary ---
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 Not on file Not on f ile Last Filed Vital Signs Vital Sign Reading Time Taken Comments Blood Pressure 112/64 05/22/2019 1:19 PM INDUSTRIAL HIRE SALES ASSISTANT Pulse 76 05/22/2019 1:19 PM INDUSTRIAL HIRE SALES ASSISTANT Temperature - - Respiratory Rate - - Oxygen Saturation 96% 05/22/2019 1:19 PM INDUSTRIAL HIRE SALES ASSISTANT Inhaled Oxygen Concentration - - Weight 115.2 kg (254 lb) 05/22/2019 1:19 PM INDUSTRIAL HIRE SALES ASSISTANT Height 177.8 cm (5' 10) 05/22/2019 1:19 PM INDUSTRIAL HIRE SALES ASSISTANT Body Mass Index 36.45 05/22/2019 1:19 PM INDUSTRIAL HIRE SALES ASSISTANT Plan of Treatment Health Maintenance Due Date Last Done Comments HPV VACCINES (1 - Male 3-dose series) 02/02/1996 DTAP/TDAP/TD VACCINES (1 - Tdap) 02/02/2000 HEPATITIS B VACCINES (1 of 3 - 19+ 3-dose series) 02/02/2000 INFLUENZA VACCINE (#1) 2024 02/22/2019, 2018 Care Teams Southeast Regional Sales Manager Relationship Specialty Start Date End Date Irene Cade MD [address] [place] [address] PCP - General Family Practice 05/22/19
--- OUTSIDE RECORDS SUMMARY | 2024-11-13 19:01 | XMS_ITS | Clinical Summary ---
Author Organization [facility] Address [address] [place] [address] Phone Care Team Providers Care Hvac Instructor Name Role Phone Yosi Melara MD Primary Care Provider [phone] Allergies Active Allergy Reactions Criticality Noted Date [...] Insurance MEDICAID [employer] Care Teams Hvac Instructor Relationship Specialty Start Date End Date Yosi Melara MD [address] [place] [address] PCP - General Family Medicine 02/05/16
[2024-11-13] MEDS: HYDROmorphone HCL INJ (*CRX) 2 MG/ML VIAL 0.5 MG IV PUSH (19:10)
--- OUTSIDE RECORDS SUMMARY | 2024-11-13 19:36 | XMS_ITS | Clinical Summary ---
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 Not on file Not on f ile Last Filed Vital Signs Vital Sign Reading Time Taken Comments Blood Pressure 112/64 05/22/2019 1:19 PM AUCTION CLERK Pulse 76 05/22/2019 1:19 PM AUCTION CLERK Temperature - - Respiratory Rate - - Oxygen Saturation 96% 05/22/2019 1:19 PM AUCTION CLERK Inhaled Oxygen Concentration - - Weight 115.2 kg (254 lb) 05/22/2019 1:19 PM AUCTION CLERK Height 177.8 cm (5' 10) 05/22/2019 1:19 PM AUCTION CLERK Body Mass Index 36.45 05/22/2019 1:19 PM AUCTION CLERK Plan of Treatment Health Maintenance Due Date Last Done Comments HPV VACCINES (1 - Male 3-dose series) 02/02/1996 DTAP/TDAP/TD VACCINES (1 - Tdap) 02/02/2000 HEPATITIS B VACCINES (1 of 3 - 19+ 3-dose series) 02/02/2000 INFLUENZA VACCINE (#1) 2024 02/22/2019, 2018 Care Teams Tree Tapping Laborer Relationship Specialty Start Date End Date Irene Cade MD [address] [place] [address] PCP - General Family Practice 05/22/19
--- OUTSIDE RECORDS SUMMARY | 2024-11-13 19:36 | XMS_ITS | Continuity of Care Document ---
Author Organization [facility] Address [address] [place] [address] Phone Care Team Providers Care Shoelace Tipping Machine Operator Name Role Phone Regine Estevez [...] Diagnoses Date Provider Providers Copied on Encounter [facility], [address], [place], [place], [id number], tel:[phone] [place] No Information Bandar Weiner. . Referring Provider: Perri Morrow, [address] [facility], [place], [address]. tel:[phone] [facility] [address] [facility], [place], [place], [id number], tel:[phone] [place] No Information Dockins-H all Regine. . Referring Provider: Perri Morrow, [address] [facility], [place], [address]. tel:[phone] [facility] [address], [place], [place], [address], tel:[phone] [place] No Information Dockins-H all Regine. . Referring Provider: Perri Morrow, [place], [address]. tel:[phone] [facility] [address] [place] [address], [place], [place], [address], tel:[phone] [place] No Information Dockins-H all Regine. . Referring Provider: [place], [address]. tel:[phone] [facility] [address] [address], [place], [place], [address], tel:[phone] [place] No Information Dockins-H all Regine. . Referring Provider: [place], [address]. tel:[phone] [facility] [address] [address], [place], [place], [address], tel:[phone] [place] No Information Dockins-H all Regine. . Referring Provider: [place], [address]. tel:[phone] Family History Family Member Type Diagnosis Age At Onset No Information Payers Payer name Insurance type Covered democrat ID Minda byrne(s) [facility] [id number] Social History Type Description Quantity Date Captured [...]
--- OUTSIDE RECORDS SUMMARY | 2024-11-13 19:36 | XMS_ITS | Clinical Summary ---
Author Organization [facility] Address [address] [place] [address] Care Team Providers Care Herbologist Name Role Phone Yosi Melara MD Primary Care Provider [phone] Social History Tobacco Use Types Packs/Day Years [...] age to complete this topic Care Teams Herbologist Relationship Specialty Start Date End Date Yosi Melara MD [address] [place] [address] PCP - General 12/27/14
--- OUTSIDE RECORDS SUMMARY | 2024-11-13 19:36 | XMS_ITS | Clinical Summary ---
Author Organization [facility] Address [address] [place] [address] Phone Care Team Providers Care Fence Post Driver Name Role Phone Yosi Melara MD Primary [...] Insurance MEDICAID [employer] Care Teams Fence Post Driver Relationship Specialty Start Date End Date Yosi Melara MD [address] [place] [phone] PCP - General Family Medicine 02/05/16
--- OUTSIDE RECORDS SUMMARY | 2024-11-13 19:36 | XMS_ITS | Encounter Summary ---
Author Organization [facility] Address [address] [place] [address] Care Team Providers Care Truck Service Manager Name Role Phone Irene Cade MD Primary Care Provider [phone] Encounter Details Date Type Department Care Team (Late st Contact Info) Description 08/29/2018 Lab Requisition [facility] Laboratory Services S [facility] [address] [place] [address] [place] [address] [facility] [address] [place] [address] Encounter for pre-employment examination Social History Tobacco Use Types Packs/Day Years Used Date Smoking Tobacco: Never Assessed Sex and Gender Information Value Date Recorded Sex Assigned at Not on file 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 REFERENCE VALUE Vaccinated: Positive (>=1.1 AI) Unvaccinated: Negative (<=0.8 AI) VARICELLA IGG INDEX 5.7 08/30/2018 10:45 PM CDT [facility] Comment: Test Performed by: [facility] [place] [address] Blood Collection / Unknown 08/29/2018 3:30 PM CDT 08/29/2018 9:19 PM CDT Ernie Mann MD CHEMISTRY ORDERABLES Final R esult [facility] * RUBELLA IGG (08/29/2018 3:30 PM CDT) RUBELLA IGG IMMUNE Immune - Positive 08/29/2018 10:14 PM CDT [facility] Blood Collection / Unknown 08/29/2018 3:30 PM CDT 08/29/2018 9:19 PM CDT Narrative [facility] - 08/29/2018 10:14 PM CDT A positive result suggests response to immunization or prior exposure to the virus. Ernie Mann MD CHEMISTRY ORDERABLES Final R esult [facility] CLIA# [id number] [address] [place] [address] * MUMPS IGG ANTIBODY (08/29/2018 3:30 PM CDT) MUMPS IGG AB Positive 08/30/2018 10:45 PM CDT [facility] Comment: Results suggest response to immunization or prior exposure to the virus. REFERENCE VALUE Vaccinated: Positive (>=1.1 AI) Unvaccinated: Negative (<=0.8 AI) MUMPS IGG INDEX 3.7 9 10:45 PM CDT [facility] Comment: Test Performed by: [address] [address] Blood Collection / Unknown 08/29/2018 3:30 PM CDT 08/29/2018 9:19 PM CDT Ernie Mann MD CHEMISTRY ORDERABLES Final R esult [facility] * RUBEOLA IGG (08/29/2018 3:30 PM CDT) RUBEOLA IGG Positive 08/30/2018 10:45 PM CDT [facility] Comment: Results suggest response to immunization or prior exposure to the virus. REFERENCE VALUE Vaccinated: Positive (>=1.1 AI) Unvaccinated: Negative (<=0.8 AI) RUBEOLA IGG INDEX 4.8 08/30/2018 10:45 PM CDT [facility] Comment: Test Performed by: [address] [address] Blood Collection / Unknown 08/29/2018 3:30 PM CDT 08/29/2018 9:19 PM CDT Ernie Mann MD CHEMISTRY ORDERABLES Final R esult [facility] * (ABNORMAL) HEPATITIS B SURFACE AB, QUANT (08/29/2018 3:30 PM CDT) HEPATITIS B SURF AB,QN <4.0 mlU/mL 08/29/2018 10:18 PM CDT [facility] HEPATITIS B SURFACE AB INTERP Non-reacti ve(A) See Interp 08/29/2018 10:18 PM CDT [facility] Blood Collection / Unknown 08/29/2018 3:30 PM CDT 08/29/2018 9:19 PM CDT Narrative [facility] - 08/29/2018 10:18 PM CDT Patient does not have immunity to Hepatitis B virus. This assay is used to determine immune status to Hepatitis B as greater than or equal to 10 mIU/mL as per CDC guidelines (MMWR:vol 55: RR-16, 2006). Ernie Mann MD CHEMISTRY ORDERABLES Final R esult Performing Organization Address City/[facility]/ZIP Co de Phone Number [facility] CLIA# [id number] [address] [place] [address] documented in this encounter Visit Diagnoses Diagnosis Encounter for pre-employment examination Health examination of defined subpopulation documented in this encounter Care Teams Truck Service Manager Relationship Specialty Start Date End Date Irene Cade MD [address] [place] [address] PCP - General Family Practice 05/22/19 documented as of this encounter
--- NOTE | 2024-11-13 19:37 | P.CONS_ITS ---
Assessment and Plan Assessment and plan (1) Acute perforated appendicitis: Code(s): K35.32 - Acute appendicitis with perforation, localized peritonitis, and gangrene, without abscess Status: Acute Assessment and Plan: Acute likely perforated appendicitis. No abscess. He does have some peritoneal signs and guarding. White blood count 92393. He appears mildly toxic. He was started on aztreonam and Flagyl for IV antibiotic coverage. We will taken to the operating this evening for emergent laparoscopic appendectomy possible conversion open appendectomy. Risks, benefits, indications, and expected outcomes were discussed in detail with the patient and/or family. They understand and I have answered all other questions. They wished to proceed with surgery as outlined above. HPI Data of Consult Date/Time: 11/13/24 19:37 Requesting Physician: Redd Bain MD Primary Care Provider: Yosi Melara MD Consult Narrative Reason for consult: Perforated acute appendicitis Narrative: Cal Foster is a 44 year old male presents to the emergency room with a diagnosis of a perforated appendix on CT scan ordered by his primary care physician. Last evening at 3:00 a.m. he started having lower abdominal pain which persisted through the day. He went to work but then came home from work early because of the pain. He went to see his primary care physician Dr. Yosi Melara who ordered a outpatient CT scan of the abdomen pelvis. That CT scan showed acute appendicitis with small foci of air around the appendix consistent with a likely perforated appendix. No abscess was seen. The patient was instructed to go immediately to the [facility] Emergency Room. White blood cell count [id number]. He is slightly tachycardic. He has never had any abdominal surgery in the past. His last bowel movement was this morning which was normal for him. Review of Systems 2 Review of Systems: The remainder of the review of systems to include constitutional, HEENT, cardiovascular, respiratory, GI, , integumentary, musculoskeletal, endocrine, immunologic, hematologic, psychiatric, and neurologic are all negative except for which is mentioned above in the HPI. [facility] Past Medical History Medical History Type 2 diabetes mellitus without complications Insomnia Obesity Perianal venous thrombosis Testicular hypofunction Hyperlipidemia, unspecified Essential (primary) hypertension Family History Family History Grandparent Family history of obesity Diabetes mellitus Mother Family history of obesity Family history of mental disorder Depression Family history of diabetes mellitus in first degree relative Social History Social History Smoking status: Never smoker Alcohol intake: current Substance use: never Lack of Transportation: No Lack of Food: Never True Current Housing: I Have Housing Concerned About Future Housing: No Difficulty Paying Gas/Electric Bills: No Difficulty Paying for Meds: No Currently Unemployed: No Difficulty w/ Childcare or Family Care: No Living arrangements: with family Occupation/Education: occupation Gender identity (if verbalized by the patient): Male Sexual Orientation (if Verbalized by the Patient): Straight or Heterosexual Spiritual care concerns: No Meds Home Medications and Allergies Home Medications ?Medication ?Instructions ?Recorded ?Confirmed ?Type ascorbic acid (vitamin C) 500 mg mg PO 04/28/22 11/13/24 History capsule cod liver oil 5 ml PO DAILY 04/28/22 11/13/24 History magnesium oxide 400 mg PO DAILY 04/28/22 11/13/24 History mecobalamin (vitamin B12) 1,000 1,000 mcg sublingual DAILY 04/28/22 11/13/24 History mcg disintegrating tablet,sublingual omega 5-hoz-yru-fish oil 1,200 mg cap PO 04/28/22 11/13/24 History (144 mg-216 mg) capsule (Fish Oil) zinc gluconate 100 mg tablet 100 mg PO DAILY 04/28/22 11/13/24 History Allergies Allergy/AdvReac Type Severity Reaction Status Date / Time latex Allergy Unknown Rash Verified 11/13/24 15:45 Penicillins Allergy Unknown Rash Verified 11/13/24 15:45 Vital Signs Vital Signs - 24 hr 11/13/24 18:16 11/13/24 19:04 11/13/24 19:05 Temperature 36.9 C 36.7 C Pulse Rate 94 96 103 H Respiratory Rate 16 20 18 Blood Pressure 127/69 142/71 H 142/71 H Pulse Oximetry 96 96 100 Oxygen Delivery Room Air Exam 2 Const: General: uncomfortable ( Complains of lower abdominal pain. Worse on the right than left.) HENMT: Ears: TM's normal bilaterally Face/Nose/Sinus: Normal nares present Mouth: Yes moist mucous membranes Eyes: General: appearance normal, both eyes and all related structures S clera: sclerae normal Pupils: Equal, round and reactive pupils present E OM: EOMs intact bilaterally Neck: Neck: supple and no JVD Resp: Effort & Inspection: normal respiratory effort Auscultation: clear to auscultation bilaterally Cardio: Rate: tachycardic Rhythm: regular rhythm GI: Other: Obese. Mildly distended. Diffuse lower abdominal tenderness with some guarding and localized peritoneal signs. No ventral hernias. No masses. : Male General Exam: Yes normal external exam Skin: General skin exam: normal color and no rashes or lesions noted Neuro: General: gait normal Speech: normal speech Motor exam (neuro): 5 /5 motor strength present throughout Sensory Exam: normal sensation Psych: Mental Status: mental status grossly normal Affect: normal affect Results Labs 11/13/24 18:21 11/13/24 18:21 Labs: Short CBC 11/13/24 Range/Units 18:21 WBC 13.1 H (4.5-10.0) K/mm3 Hgb 15.3 (14.0-18.0) g/dL Hct 45.3 (42.0-52.0) % Plt Count 215 (150-375) k/mm3 BMP 11/13/24 18:21 Sodium 136 L Potassium 4.5 Chloride 99 Carbon Dioxide 27 BUN 18 Creatinine 1.05 Glucose 147 H Calcium 10.0 Liver Function 11/13/24 Range/Units 18:21 Total Bilirubin 0.7 (0.2-1.3) mg/dL AST 27 (17-59) U/L ALT 24 (6-50) U/L Alkaline Phosphatase 81 (38-126) U/L Albumin 4.8 (3.5-5.1) g/dL Imaging Radiologist's impression: CT Scan Report Signed Patient: Cal Foster : 1980 MR#: [id number] Age: 44 Acct:[id number] Loc: [facility] ADM Date: 11/13/24Attending Dr: Yosi Melara M.D. Ordering Physician: Yosi Melara MD Date of Service: 11/13/24 Procedure(s): CT abdomen pelvis w con Accession Number(s): [id number] cc: Yosi Melara MD~ EXAMINATION: CT abdomen pelvis w con DATE: 11/13/2024 17:37 INDICATION: Right lower quadrant abdominal pain TECHNIQUE: Computed tomography (CT) of the abdomen and pelvis was performed with 100 mL Omnipaque-350 intravenous contrast. Automated exposure control and iterative reconstruction technique were employed. The dose-length product was 1624.28 mGy-cm. COMPARISON: None FINDINGS: Subtle bands of discoid atelectasis/scarring in the left lower lobe and lingula. No pleural effusion. Heart size is normal. No pericardial effusion. Mild bilateral gynecomastia. Likely mild diffuse hepatic steatosis although specificities decreased in the presence of intravenous contrast. Gallbladder, spleen, pancreas, bilateral adrenal glands and right kidney are normal. 3.7 cm cyst at the lower pole the left kidney. There is prominent inflammatory stranding surrounding the pancreas and the tip the cecum where there is associated edematous wall thickening. There are multiple calcite appendicoliths within the appendix which is dilated to 1.8 cm maximal diameter. There residual small foci of extraluminal gas in the right hemipelvis along the appendix, cecum and terminal ileum. Findings are most consistent with perforated appendicitis. Minimal amount of free fluid in the deep pelvis. No evident organized abscess. Bladder is normal. No pathologically enlarged abdominal or pelvic lymphadenopathy. Small fat-containing left inguinal hernia. Mild spondylosis in the lumbar and visualized mid to lower thoracic spine. IMPRESSION: 1. Perforated acute appendicitis. Dr. Moody discussed these findings with Dr. Melara at 6:00 PM. Reviewed, dictated and finalized at location A.
--- NOTE | 2024-11-13 19:43 | WPDANESEPP ---
Anes - Eval Pre Procedure Procedure: Operation Date: 11/13/24 20:00 Proposed Procedures p Laparoscopic Appendectomy - Redd Bain MD Date/Time: 11/13/24 19:43 Surgeon: Odell Preop Diagnosis: Ruptured Acute Appendicitis Pre Op Diagnosis: RUQ pain since last night Patient Data Age: 44 Gender: M Height: 1.78 m Weight: 122 kg Last Vital Signs Temp 36.7 C 11/13/24 19:05 Pulse 103 H 11/13/24 19:05 Resp 18 11/13/24 19:05 BP 142/71 H 11/13/24 19:05 Pulse Ox 100 11/13/24 19:05 O2 Del Method Room Air 11/13/24 19:05 Allergies Allergy/AdvReac Type Severity Reaction Status Date / Time latex Allergy Unknown Rash Verified 11/13/24 15:45 Penicillins Allergy Unknown Rash Verified 11/13/24 15:45 Home Medications ?Medication ?Instructions ?Recorded ?Confirmed ?Type ascorbic acid (vitamin C) 500 mg mg PO 04/28/22 11/13/24 History capsule cod liver oil 5 ml PO DAILY 04/28/22 11/13/24 History magnesium oxide 400 mg PO DAILY 04/28/22 11/13/24 History mecobalamin (vitamin B12) 1,000 1,000 mcg sublingual DAILY 04/28/22 11/13/24 History mcg disintegrating tablet,sublingual omega 5-yfm-hgw-fish oil 1,200 mg cap PO 04/28/22 11/13/24 History (144 mg-216 mg) capsule (Fish Oil) zinc gluconate 100 mg tablet 100 mg PO DAILY 04/28/22 11/13/24 History Laboratory Tests 11/13/24 11/13/24 18:21 18:54 WBC 13.1 H K/mm3 (4.5-10.0) RBC 4.99 M/mm3 (4.6-6.20) Hgb 15.3 g/dL (14.0-18.0) Hct 45.3 % (42.0-52.0) MCV 90.8 fl (80-100) MCH 30.7 pg (26-34) MCHC 33.8 g/dl (32-36) RDW 12.9 % (11.5-14.5) Plt Count 215 k/mm3 (150-375) MPV 8.9 fl (7.4-10.4) Immature Gran % (Auto) 0.5 % (0-0.5) Neut % (Auto) 76.4 H % (45.5-73.1) Lymph % (Auto) 15.4 L % (18.3-44.2) [place] % (Auto) 7.2 % (2.6-8.5) Eos % (Auto) 0.2 % (0-4.4) Baso % (Auto) 0.3 % (0.2-1.2) Lymph # (Auto) 2.02 K/mm3 (0.9-3.2) [place] # (Auto) 0.9 H K/mm3 (0.1-0.6) Eos # (Auto) 0.0 K/mm3 (0-0.3) Baso # (Auto) 0.0 K/mm3 (0.0-0.1) Abs Immat Gran (auto) 0.07 H K/mm3 (0.00-0.031) Absolute Neuts (auto) 10.0 H K/mm3 (1.3-6.7) Absolute Nucleated RBC 0.000 K/mm3 (0.0-0.012) Nucleated RBC % 0.0 % (0.0-0.2) Sodium 136 L mmol/L (137-145) Potassium 4.5 mmol/L (3.4-5.0) Chloride 99 mmol/L (98-107) Carbon Dioxide 27 mmol/L (22-30) Anion Gap 10 mmol/L (4-12) BUN 18 mg/dL (9-20) Creatinine 1.05 mg/dL (0.7-1.3) Estim Creat Clear Calc 106 ml/min Estimated GFR > 60 (59 - ) Glucose 147 H mg/dL (65-110) Lactic Acid 1.6 mmol/L (0.7-2.0) Calcium 10.0 mg/dL (8.4-10.2) Total Bilirubin 0.7 mg/dL (0.2-1.3) AST 27 U/L (17-59) ALT 24 U/L (6-50) Alkaline Phosphatase 81 U/L (38-126) Total Protein 8.5 H g/dL (6.3-8.2) Albumin 4.8 g/dL (3.5-5.1) Lipase 23 U/L (23-300) Patient hx anesthesia problems: none Family hx anesthesia problems: none Results Review: All pre-operative results and documents have been reviewed as part of the pre-operative evaluation. [facility] Past Medical History Medical History Type 2 diabetes mellitus without complications Insomnia Obesity Perianal venous thrombosis Testicular hypofunction Hyperlipidemia, unspecified Essential (primary) hypertension Family History Family History Grandparent Family history of obesity Diabetes mellitus Mother Family history of obesity Family history of mental disorder Depression Family history of diabetes mellitus in first degree relative Social History Social History Smoking status: Never smoker Alcohol intake: current Substance use: never Lack of Transportation: No Lack of Food: Never True Current Housing: I Have Housing Concerned About Future Housing: No Difficulty Paying Gas/Electric Bills: No Difficulty Paying for Meds: No Currently Unemployed: No Difficulty w/ Childcare or Family Care: No Living arrangements: with family Occupation/Education: occupation Gender identity (if verbalized by the patient): Male Sexual Orientation (if Verbalized by the Patient): Straight or Heterosexual Spiritual care concerns: No Exam Day of Procedure 11/13/24 19:43 Patient weight: normal Heart: regular rate and rhythm Lungs: clear to auscultation and normal air movement Airway: Mallampati scale class II Neurological: alert and oriented
[2024-11-13] MEDS: cefTRIAXone 1 GM in SODIUM CHLORIDE 0.9% IV 50 ML 100 ML IVPB (20:08)
--- NOTE | 2024-11-13 20:11 | P.PNAN_ITS ---
Anes - Eval Final PreProcedure Day of Procedure 11/13/24 20:11 Patient weight: obese Heart: regular rate and rhythm Lungs: clear to auscultation Airway: Mallampati scale class III Neurological: alert and oriented Last oral intake: >/= 8 hours ASA classification: III Emergent: yes Anesthetic plan: proceed Anesthesia type and monitoring: general ETT and standard monitoring Results Review: All pre-operative results and documents have been reviewed as part of the pre- operative evaluation. Informed Consent: The patient's anesthetic plan and its attendant risks and benefits were discussed with the patient/family/POA. Questions were solicited and answers provided to the satisfaction of the patient/family/POA.
[2024-11-13] MEDS: AZTREONAM 1 GM in SODIUM CHLORIDE 0.9% IV 50 ML IVPB ×2 (20:13→20:59)
[2024-11-13] MEDS: metroNIDAZOLE 500 MG/ISO 100ML 500 MG/100 ML BAG 100 MG IVPB (20:18)
--- NOTE | 2024-11-13 20:22 | WPDHPUPDATE1 ---
History and Physical Update Update Date/Time: 11/13/24 20:22 History and Physical has been reviewed, including an updated exam of the patient. There are NO changes in the patient's condition. Risks, benefits, and alternatives have been discussed and questions answered. Patient agrees to proceed with procedure.
[2024-11-13] MEDS: LIDO 1%/EPINEPHRINE 1:100,000 20 ML VIAL 60 ML INFILTRATE (21:03)
--- NOTE | 2024-11-13 21:18 | S_PTH ---
PATIENT: Cal Foster LOC: [id number] #:[id number] AGE/SX: 44/M ROOM: 347 RE11/13/[address]: Chris Salmeron DO : 1980 BED: 01 DIS: 11/17/2024 SPEC #: [id number] RECD: 11/14/24 07:24 STATUS: NORM REQ #: [id number] JAMARCUS: 11/13/24 21:[address]: Redd Bain DEPT: [facility] Surgical RECD BY: Paloma Hartman ENTERED: 11/14/24 07:24 SP TYPE: Surgical OTHR DR: Yosi Melara MD Tissues: A - Appendix Procedures: Hematoxylin and Eosin Stain Gross and Microscopic Level 3
[2024-11-13] MEDS: LACTATED RINGERS 1,000 ML 30 ML IV CONT (21:50)
--- NOTE | 2024-11-13 22:05 | P.OP_ITS ---
Procedure Note - Detailed Date of Procedure 11/13/24 Pre-op Diagnosis Perforated appendicitis Post-op Diagnosis Other (Acute perforated appendicitis with peritonitis and fecal contamination) Procedure Performed Laparoscopic appendectomy Surgeon Redd Bain MD [employer] Adrian Millan [facility] Anesthesia General Indications Patient is a 44-year-old male who started having pain in the lower abdomen last evening. He did feel well working so he went home and contact his primary care physician. An outpatient CT scan abdomen pelvis was performed showing what appeared to be a perforated acute appendicitis. [facility] his primary care physician and on examination the patient appeared to be [place] [address]. He was tachycardic on exam he had guarding and some mild generalized peritoneal signs. Appeared acute surgical abdomen. Findings Patient had a perforated appendix with contamination of the right lower quadrant of the abdomen and to the pelvis. There was no organized abscess. He did have a phlegmon around the area of the cecum. The appendix had perforated about 1cm distal to the base. There was a large appendicoliths within the appendix. Description of Procedure After informed consent was obtained the patient was brought to the operating room placed supine position and general endotracheal anesthesia was administered. A Qureshi catheter was placed to decompress the bladder and the abdomen was then prepped and draped usual sterile fashion. Time-out was then performed correctly identifying the patient as well as the procedure to be performed. He was already scheduled IV antibiotics. I started by entering the abdomen left upper quadrant utilizing a 5mm Optiview port. Once inside the abdomen insufflated to adequate pneumoperitoneum of 15mmHg of CO2. A could then see the right lower quadrant the abdomen and there was a phlegmon in the area with matted loops of small bowel the terminal ileum to the cecum. Within this I could see the tip of the appendix which was leading to the more proximal portion appendix which were inflamed. There was obvious fecal contamination of the right lower quadrant upon entering the abdomen. I then placed a 12mm periumbilical trocar port as well as more additional 5mm trocar ports in the suprapubic area and the right lower quadrant all under direct visualization. Working through these trocar ports I then proceeded to separate the loops of small bowel from the cecum to identify the appendix. The appendix appeared to perforated about 1cm distal to the base of the appendix. There was pieces of feces which had drained out of the appendix were had perforated. I then proceeded to start mobilize the appendix by dividing the mesoappendix. Defects were made through the mesoappendix with a laparoscopic dissected and then vascular load to the 45mm Endo-SHAMEKA stapler was then used to divide the mesoappendix with 2 additional reloads. This allowed me to hold up the appendix and straighten out the base vertically. I could see that I could get a margin of viable tissue proximal to the area perforations flush with the cecum. A blue bowel reload to the 45mm Endo-SHAMEKA stapler was then used to divide the appendix flush with the cecum. The staple line was intact and the tissue appeared to be viable. The appendix was then placed into an Endo-Catch bag and brought out through the periumbilical trocar port site. It was sent to pathology for examination. I then irrigated out the right lower quadrant the abdomen with a couple L of saline solution. All gross fecal material was aspirated. Irrigated out the pelvis with another L of saline solution until it appeared to be relatively clear. I then placed a 15mm round Jaiden drain through the right lower quadrant 5mm trocar port into the right lower quadrant the abdomen extending down into the pelvis. I then secured the and the skin with a 3-0 nylon suture. I then proceeded to close the 12mm balloon trocar port fascial defect utilizing 0 Vicryl suture placed with the suture assist device. All the trocar ports were then removed under direct visualization all port sites appeared hemostatic. The abdomen was allowed to decompress. I then irrigated out the port sites sterile saline solution and then closed the port sites at the skin level utilizing a running subcuticular 4-0 Monocryl suture. Incisions were then cleaned and then skin glue was applied. The drain was placed to active grenade bulb suction. A drain dressing was then placed. The patient tolerated the procedure well no complications. All sponges, needles, and instrument counts were correct at the end procedure. EBL was _50__cc. The patient was awakened and taken to recovery in stable and satisfactory condition. Implants None Estimated Blood Loss 50 Drains Yes (15 Lithuanian round Jaiden drain right lower quadrant and pelvis x1) Packing No Pathology Yes (Appendix to pathology) Complications No immediate complications Condition Stable Disposition PACU [facility] Billing Surgery - Charge Forward: Surgery Billing
[2024-11-13] MEDS: fentaNYL CITRATE INJ (*CRX) 100 MCG/2 ML VIAL 25 MCG IV PUSH ×4 (22:10→22:25)
[2024-11-13] MEDS: HYDROcodone/acetaminophen (*CRX) 5-325 MG TABLET 1 TAB PO (23:38)
[2024-11-13] MEDS: SODIUM CHLORIDE 0.9% IV 1,000 ML 125 ML IV CONT (23:38)
[2024-11-13] MEDS: BENZONATATE 100 MG CAPSULE PO (23:39)
[2024-11-14] VITALS (14 sets, daily range): BP systolic 112–126; BP diastolic 65–74; PULSE 92–119; RESP 14–18; TEMP 36.6–37.3; O2SAT 90–97
[2024-11-14] MEDS: HYDROmorphone HCL INJ (*CRX) 2 MG/ML VIAL 1 MG IV PUSH ×3 (01:42→08:55)
--- NOTE | 2024-11-14 02:02 | P.HP_ITS ---
H&P: HPI History of Present Illness Date/Time: 11/14/24 02:02 Chief Complaint: Outpatient CT demonstrating perforated appendicitis Narrative: Extremely pleasant and loquacious 44-year-old male with a past medical history of dyslipidemia, diet-controlled diabetes mellitus and morbid obesity who presented to the ER via private vehicle after outpatient CT scan demonstrated perforated appendicitis. Patient reports that his pain began on the night of the . Pain was in the right lower quadrant with occasional radiation up to the right shoulder and was accompanied by some nausea but no vomiting. He reported that throughout the morning he felt confused and somewhat out of it. He could tell that he was just not mentally right. He reports that his pain was an 8/10 in intensity initially but became much worse after leaving his primary care physician's office and was nearly unbearable by the time he finished with this CT. Pain was 10/10 in intensity and made worse with walking and movement. The patient reported having no appetite in no desire to eat He called his primary care physician and went into the office for evaluation. Exam was concerning for acute appendicitis and the patient was sent for stat outpatient CT of the abdomen and pelvis. CT demonstrated acute perforated appendicitis in the patient was sent directly to the ER. Initially in the ER patient was afebrile but he did spike a temperature to 102.5. The patient denied any subjective fevers or chills prior to this. He was tachycardic and tachypneic. One portion of the patient's blood cultures were obtained in the patient was taken directly to the OR. Second set of blood cultures obtained postoperatively. The patient was started on empiric antibiotic therapy with aztreonam and Flagyl. He received 2 L fluid bolus in the ER. I evaluated the patient on the medical floor postoperatively. The patient reports that his pain is down to a 6/10 in intensity any feels much more comfortable. He denies any known history of fatty liver but there is hepatic steatosis noted on imaging. He denies any jaundice. He denies any significant alcohol use. He reports that his states that he snores like a bear. He denies any daytime fatigue. The patient did arrived to the medical floor on nasal cannula postoperatively. It is unclear if he had any apnea or hypoxia in the recovery area. He is pleasant and joking about the situation. He denies any current nausea. He is noted to have some chronic superior to his umbilicus that he thinks may be a hernia. However no mention of umbilical hernia on imaging. He reports that prior to his onset of symptoms he has been having normal bowel movements without hematochezia or melena. He has chronic obesity. He reported that he used to have require medications for his diabetes but was able to get off medications after significant diet lifestyle modifications over 10 years ago. He admits he has regained some of his weights but is in the process of getting back on track. There was an incidental finding of small left inguinal hernia containing fat. Review of Systems 2 Review of Systems: 12 systems were reviewed with pertinent positives and negatives per HPI. Except as documented in the HPI, all other systems were reviewed and are negative. [facility] Past Medical History Medical History (Updated 11/14/24 @ 02:20 by Domitila Burciaga DO) Left inguinal hernia Noted on imaging 11/13/2024 small containing fact Hepatic steatosis Noted on CT 11/13/2024 Type 2 diabetes mellitus without complications Insomnia Obesity Perianal venous thrombosis Testicular hypofunction Hyperlipidemia, unspecified Essential (primary) hypertension Surgical History Surgical History (Updated 11/14/24 @ 02:05 by Domitila Burciaga DO) Status post myringotomy with tube placement of both ears History of tonsillectomy and adenoidectomy Family History Family History Grandparent Family history of obesity Diabetes mellitus Mother Family history of obesity Family history of mental disorder Depression Family history of diabetes mellitus in first degree relative Social History Social History (Updated 11/14/24 @ 02:27 by Domitila Burciaga DO) Social History: Patient lives with his and their 2 children her under 15 years old. They have been since 2016. He also has another child that is 24 years old and out of the home. Has a 24 years old child. 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 He is a lifelong nonsmoker. He drinks alcohol about once per month. He denies illicit substance use. Code status: Full code Surrogate decision maker: Smoking status: Never smoker Second hand tobacco smoke exposure: No Alcohol intake: never Alcohol use details: A glass of wine per month Substance use: never Substance use type: does not use Do You Feel Safe in your Home?: Yes Lack of Transportation: No Lack of Food: Never True Current Housing: I Have Housing Concerned About Future Housing: No Difficulty Paying Gas/Electric Bills: No Difficulty Paying for Meds: No Currently Unemployed: No Education: Associate Degree Difficulty w/ Childcare or Family Care: No Living arrangements: with family Occupation/Education: occupation Gender identity (if verbalized by the patient): Male Sexual Orientation (if Verbalized by the Patient): Straight or Heterosexual Spiritual care concerns: No Meds Home Medications and Allergies Home Medications ?Medication ?Instructions ?Recorded ?Confirmed ?Type No Home Medications 11/14/24 11/14/24 History Allergies Allergy/AdvReac Type Severity Reaction Status Date / Time latex Allergy Unknown Rash Verified 11/13/24 15:45 Penicillins Allergy Unknown Rash Verified 11/13/24 15:45 Vital Signs Vital Signs - 24 hr 11/13/24 18:16 11/13/24 19:04 11/13/24 19:05 Temperature 98.4 F 98.0 F Pulse Rate 94 96 103 H Respiratory Rate 16 20 18 Blood Pressure 127/69 142/71 H 142/71 H Pulse Oximetry 96 96 100 Oxygen Delivery Room Air Oxygen Flow Rate 11/13/24 19:45 11/13/24 21:50 11/13/24 22:05 Temperature 102.5 F H 98.8 F Pulse Rate 112 H 105 H 109 H Respiratory Rate 22 H 26 H 18 Blood Pressure 145/53 H 120/62 128/75 Pulse Oximetry 92 100 100 Oxygen Delivery Simple Face Mask Simple Face Mask Oxygen Flow Rate 8 8 11/13/24 22:20 11/13/24 22:35 11/13/24 22:50 Temperature 98.4 F Pulse Rate 107 H 111 H 109 H Respiratory Rate 18 16 16 Blood Pressure 125/80 110/73 110/73 Pulse Oximetry 100 100 100 Oxygen Delivery Simple Face Mask Room Air Room Air Oxygen Flow Rate 8 11/13/24 23:20 11/13/24 23:35 11/14/24 00:00 Temperature 98.8 F 98.4 F 99 F Pulse Rate 109 H 105 H 102 H Respiratory Rate 18 18 18 Blood Pressure 115/72 141/73 H 126/69 Pulse Oximetry 92 93 93 Oxygen Delivery Oxygen Flow Rate 11/14/24 01:00 11/14/24 01:26 Temperature 98.2 F Pulse Rate 101 H Respiratory Rate 18 Blood Pressure 113/69 Pulse Oximetry 95 93 Oxygen Delivery Nasal Cannula Oxygen Flow Rate 2 Exam 2 Narrative: Weight 127.5 kg BMI 40.3 Const: Other: No acute distress, morbidly obese, appears stated age HENMT: Other: Mucous membranes are tacky, crowded posterior oropharynx, no oral pharyngeal erythema, good dentition Eyes: Other: No scleral icterus, no conjunctival pallor, pupils are equal and reactive Neck: Other: Large neck circumference, no JVD, no lymphadenopathy Resp: Other: Clear to auscultation bilaterally, no increased work of breathing Cardio: Other: Sinus tachycardia, 2+ bilateral radial pedal pulses, no murmur, no JVD GI: Other: Distended, diffusely tender, hypoactive bowel sounds, fullness in the periumbilical region Skin: Other: Hot to touch, diaphoretic Neuro: Other: Alert oriented x4, speech is clear, no facial asymmetry, no localizing neurologic deficits noted during the course of conversation Extrem: Other: No clubbing, cyanosis or edema, moves all extremities equally Psych: Other: Pleasant and cooperative, judgment and insight intact, appropriate mood and affect H&P: Results Labs Labs: Laboratory Tests 11/13/24 18:21 11/13/24 18:21 11/13/24 11/13/24 11/13/24 18:21 18:54 23:39 WBC 13.1 H RBC 4.99 Hgb 15.3 Hct 45.3 MCV 90.8 MCH 30.7 MCHC 33.8 RDW 12.9 Plt Count 215 MPV 8.9 Immature Gran % (Auto) 0.5 Neut % (Auto) 76.4 H Lymph % (Auto) 15.4 L [place] % (Auto) 7.2 Eos % (Auto) 0.2 Baso % (Auto) 0.3 Lymph # (Auto) 2.02 [place] # (Auto) 0.9 H Eos # (Auto) 0.0 Baso # (Auto) 0.0 Abs Immat Gran (auto) 0.07 H Absolute Neuts (auto) 10.0 H Absolute Nucleated RBC 0.000 Nucleated RBC % 0.0 Sodium 136 L Potassium 4.5 Chloride 99 Carbon Dioxide 27 Anion Gap 10 BUN 18 Creatinine 1.05 Estim Creat Clear Calc 106 Estimated GFR > 60 Glucose 147 H Lactic Acid 1.6 1.4 Calcium 10.0 Total Bilirubin 0.7 AST 27 ALT 24 Alkaline Phosphatase 81 Total Protein 8.5 H Albumin 4.8 Lipase 23 EXAMINATION: CT abdomen pelvis w con DATE: 11/13/2024 17:37 INDICATION: Right lower quadrant abdominal pain TECHNIQUE: Computed tomography (CT) of the abdomen and pelvis was performed with 100 mL Omnipaque-350 intravenous contrast. Automated exposure control and iterative reconstruction technique were employed. The dose-length product was 1624.28 mGy-cm. COMPARISON: None FINDINGS: Subtle bands of discoid atelectasis/scarring in the left lower lobe and lingula. No pleural effusion. Heart size is normal. No pericardial effusion. Mild bilateral gynecomastia. Likely mild diffuse hepatic steatosis although specificities decreased in the presence of intravenous contrast. Gallbladder, spleen, pancreas, bilateral adrenal glands and right kidney are normal. 3.7 cm cyst at the lower pole the left kidney. There is prominent inflammatory stranding surrounding the pancreas and the tip the cecum where there is associated edematous wall thickening. There are multiple calcite appendicoliths within the appendix which is dilated to 1.8 cm maximal diameter. There residual small foci of extraluminal gas in the right hemipelvis along the appendix, cecum and terminal ileum. Findings are most consistent with perforated appendicitis. Minimal amount of free fluid in the deep pelvis. No evident organized abscess. Bladder is normal. No pathologically enlarged abdominal or pelvic lymphadenopathy. Small fat-containing left inguinal hernia. Mild spondylosis in the lumbar and visualized mid to lower thoracic spine. IMPRESSION: 1. Perforated acute appendicitis. All imaging and EKGs personally reviewed and interpreted. And unless stated otherwise agree with radiologic and cardiology interpretation. Assessment and Plan Assessment and plan (1) Acute perforated appendicitis: Code(s): K35.32 - Acute appendicitis with perforation, localized peritonitis, and gangrene, without abscess Status: Acute (2) Sepsis: Qualifiers: Sepsis type: sepsis due to unspecified organism Sepsis acute organ dysfunction status: with acute organ dysfunction Severe sepsis acute organ dysfunction type: encephalopathy Severe sepsis shock status: without septic shock Qualified Code(s): A41.9 - Sepsis, unspecified organism; R65.20 - Severe sepsis without septic shock; G93.41 - Metabolic encephalopathy Code(s): A41.9 - Sepsis, unspecified organism Status: Acute (3) Type 2 diabetes mellitus without complications: Qualifiers: Diabetes mellitus residential insulin use: without middle or intermediate school principal use Q ualified Code(s): E11.9 - Type 2 diabetes mellitus without complications Code(s): E11.9 - Type 2 diabetes mellitus without complications Status: Acute (4) Loud snoring: Code(s): R06.83 - Snoring Status: Acute (5) Hepatic steatosis: Code(s): K76.0 - Fatty (change of) liver, not elsewhere classified Status: Acute Plan Patient presented the hospital with sepsis due to perforated appendicitis. The patient went for emergent laparoscopic cholecystectomy. Patient was evaluated postop on the medical floor. Will continue the patient on empiric antibiotic therapy as discussed under HPI. Blood cultures have been obtained and are pending. Postoperative management per primary service. Would continue maintenance IV fluid hydration for the next 12-24 hours then re-evaluate. Will monitor strict I&O's. Patient has diet-controlled diabetes mellitus but is mildly hyperglycemic likely due to acute stress reaction from sepsis. Will monitor Accu-Cheks a.c. HS and provide hypoglycemia protocol as needed. Will add low-dose sliding scale insulin if needed. Patient does snore quite loudly and is at high risk for obstructive sleep apnea given his body habitus. Will obtain ApneaLink for screening for sleep apnea. Patient does have hepatic steatosis would likely benefit from statin therapy as outpatient as well as diet lifestyle modification. Will address home med rec once verified by nursing staff. MEDICAL DECISION MAKING NARRATIVE -Spoke with the ED provider in detail regarding patient's evaluation, workup and management -Patient seen and examined at bedside -Collaborated with patient's nurse at the bedside in detail and addressed all concerns -Labs, electrolytes, radiology, investigations and test results reviewed -ED/Consult/Nursing/Ancilliary notes on the chart reviewed and appreciated -Spoke with patient at bedside and all questions answered. Quality VTE Prophylaxis VTE prophylaxis: pharmacologic ordered (Lovenox 40 mg subQ daily.) Hospitalist MIPS Advance Care Plan I have confirmed that the patient's Advanced Care Plan is present, code status is documented, or surrogate decision maker is listed in patient medical record.: Yes Medication Reconciliation I have utilized all available resources to obtain, update and review the patients current medications (includes all prescriptions, OTC, herbals, cannabis, and nutritional supplements).: Yes
[2024-11-14] MEDS: AZTREONAM 1 GM in SODIUM CHLORIDE 0.9% IV 50 ML IVPB ×3 (04:17→20:24)
[2024-11-14] MEDS: HYDROcodone/acetaminophen (*CRX) 5-325 MG TABLET 1 TAB PO (04:23)
[2024-11-14] MEDS: metroNIDAZOLE 500 MG/ISO 100ML 500 MG/100 ML BAG 100 MG IVPB ×3 (05:16→19:38)
--- NOTE | 2024-11-14 06:17 | ADMGEN ---
This patient, Cal Foster, was admitted to Medical Room 347-. Patient/family oriented to hospital policies and general routines including ID bracelet, bed and alarms, visiting hours, pain management, procedures, bathroom and other care routines, personal items, smoking policy, room service/diet, and visiting hours. Information on how to activate the Rapid Response Team has been discussed. Patient/Family are encouraged to report perceived risks to care and to ask questions if they do not understand what they are told or what they should do.
[2024-11-14 06:32] LABS: Alanine Aminotransferase 19 U/L (6-50); Albumin Level 3.8 g/dL (3.5-5.1); Alkaline Phosphatase 60 U/L (38-126); Anion Gap 8 mmol/L (4-12); Aspartate Amino Transferase 20 U/L (17-59); Bilirubin,Total 0.7 mg/dL (0.2-1.3); Blood Urea Nitrogen 20 mg/dL (9-20); Calcium 8.3 mg/dL (8.4-10.2); Carbon Dioxide 23 mmol/L (22-30); Chloride 104 mmol/L (98-107); Estimated CRCL calculation 113 ml/min; Estimated Glomerular Filt Rate > 60; Glucose 165 mg/dL (65-110); Potassium 4.4 mmol/L (3.4-5.0); Sodium 135 mmol/L (137-145); Total Protein 6.7 g/dL (6.3-8.2)
[2024-11-14 07:08] LABS: Hematocrit 40.3 % (42.0-52.0); Hemoglobin 13.5 g/dL (14.0-18.0); Mean Corpuscular HGB Conc 33.5 g/dl (32-36); Mean Corpuscular Hemoglobin 31.1 pg (26-34); Mean Corpuscular Volume 92.9 fl (80-100); Platelet Count Result 187 k/mm3 (150-375); Red Blood Count 4.34 M/mm3 (4.6-6.20); White Blood Count 8.1 K/mm3 (4.5-10.0)
--- NOTE | 2024-11-14 07:33 | PM.IMPN ---
Progress Note: A&P Assessment and Plan (1) Acute perforated appendicitis: Code(s): K35.32 - Acute appendicitis with perforation, localized peritonitis, and gangrene, without abscess Status: Acute (2) Sepsis: Qualifiers: Sepsis acute organ dysfunction status: with acute organ dysfunction Sepsis type: sepsis due to unspecified organism Severe sepsis acute organ dysfunction type: encephalopathy Severe sepsis shock status: without septic shock Qualified Code(s): A41.9 - Sepsis, unspecified organism; R65.20 - Severe sepsis without septic shock; G93.41 - Metabolic encephalopathy Code(s): A41.9 - Sepsis, unspecified organism Status: Acute (3) Type 2 diabetes mellitus without complications: Qualifiers: Diabetes mellitus group home insulin use: without group home use Qualified Code(s): E11.9 - Type 2 diabetes mellitus without complications Code(s): E11.9 - Type 2 diabetes mellitus without complications Status: Acute (4) Loud snoring: Code(s): R06.83 - Snoring Status: Acute (5) Hepatic steatosis: Code(s): K76.0 - Fatty (change of) liver, not elsewhere classified Status: Acute Plan Perforated appendicitis Sepsis Postop day 1 emergent laparoscopic cholecystectomy VIDHYA drain to right abdomen with serosanguineous drainage Abdomen mildly distended. Passing gas Surgery consulted, appreciate recommendations --Following drain output --IV fluids, encourage PO --Continuing antibiotics, Aztreonam, Flagyl. Would likely tolerate ceftriaxone since PCN allergy is rash. Acute pain Due to perforated appendicitis and postop pain --Acetaminophen, Oxy, dilaudid p.r.n. Nausea/Vomiting Overall controlled with ondansetron Add Compazine p.r.n.. --recommended increased activity Diabetes Diet controlled. Blood sugar 174 overnight, likely stress response. Since then 115-132 --Continue Acetaminophen, Oxy, dilaudid p.r.n. --If blood sugars trending up, add SSI --Check HgbA1c Dysuria Reports pain when voiding today and hematuria. RN reports urine was dark but not bloody. Dysuria may be traumatic and suspect will resolve --check UA --follow culture Snoring Apnealink pending Hepatic steatosis Statin outpatient. Check lipid profile Time Spent With Patient Time: 52 minutes Subjective Date/time seen: 11/14/24 14:15 Interval history: Intermittent nausea, no vomiting, improved with zofran. Still having a lot of pain. Passing gas. Was up in a chair this afternoon Reports dysuria and hematuria once earlier today after catheter removal. RN reports it was dark but not bloody. Stood up on the side of the bed and was mildly dizzy, is getting IV fluids. Discussed asking for help when he gets up, increasing activity Review of Systems Review of Systems: 12 systems were reviewed with pertinent positives and negatives per HPI. Except as documented in the HPI, all other systems were reviewed and are negative. Exam Narrative: General - Awake and alert. No acute distress Eyes - PERRLA, EOM intact ENT - No thrush, No erythema Neck - No noticeable or palpable swelling Lymph Nodes - No lymphadenopathy Cardiovascular - RRR no m/r/g, no JVD Lungs: Clear to auscultation, No wheezing, use of accessory muscles, no crackles or wheezes. Skin - Skin warm and dry, no wounds or rashes Abdomen - Normal bowel sounds, abdomen soft and nontender. Right VIDHYA drain with bloody drainage Extremities - No edema, cyanosis or clubbing Musculoskeletal - 5/5 strength, normal range of motion, no swollen or erythematous joints. Neurological ? Alert and oriented x 3, CN 2-12 grossly intact. Psych: Normal mood and affect Objective Data Vital Signs Vital Signs: Vital Signs - 24 hr 11/13/24 18:16 11/13/24 19:04 11/13/24 19:05 Temperature 98.4 F 98.0 F Pulse Rate 94 96 103 H Respiratory Rate 16 20 18 Blood Pressure 127/69 142/71 H 142/71 H Pulse Oximetry 96 96 100 Oxygen Delivery Room Air Oxygen Flow Rate 11/13/24 19:45 11/13/24 21:50 11/13/24 22:05 Temperature 102.5 F H 98.8 F Pulse Rate 112 H 105 H 109 H Respiratory Rate 22 H 26 H 18 Blood Pressure 145/53 H 120/62 128/75 Pulse Oximetry 92 100 100 Oxygen Delivery Simple Face Mask Simple Face Mask Oxygen Flow Rate 8 8 11/13/24 22:20 11/13/24 22:35 11/13/24 22:50 Temperature 98.4 F Pulse Rate 107 H 111 H 109 H Respiratory Rate 18 16 16 Blood Pressure 125/80 110/73 110/73 Pulse Oximetry 100 100 100 Oxygen Delivery Simple Face Mask Room Air Room Air Oxygen Flow Rate 8 11/13/24 23:20 11/13/24 23:35 11/14/24 00:00 Temperature 98.8 F 98.4 F 99 F Pulse Rate 109 H 105 H 102 H Respiratory Rate 18 18 18 Blood Pressure 115/72 141/73 H 126/69 Pulse Oximetry 92 93 93 Oxygen Delivery Oxygen Flow Rate 11/14/24 00:00 11/14/24 01:00 11/14/24 01:26 Temperature 98.2 F Pulse Rate 100 101 H Respiratory Rate 18 Blood Pressure 113/69 Pulse Oximetry 95 93 Oxygen Delivery Nasal Cannula Oxygen Flow Rate 2 11/14/24 04:00 11/14/24 04:38 Temperature 97.9 F Pulse Rate 93 92 Respiratory Rate 18 Blood Pressure 113/65 Pulse Oximetry 97 Oxygen Delivery Oxygen Flow Rate Intake/Output Intake/Output: Intake & Output 11/11/24 11/12/24 11/13/24 11/14/24 23:59 23:59 23:59 23:59 Intake Total 1000 50 Output Total 20 Balance 1000 30 Meds/Results Medications: Active Medications Generic Name Dose Route Start Last Admin Trade Name Freq PRN Reason Stop Dose Admin Acetaminophen 1,000 mg 11/13/24 22:55 Acetaminophen 500 Mg Tablet PO Q6H PRN Mild Pain (1-3) or Fever Hydrocodone Bitart/Acetaminophen 1 tab 11/13/24 22:55 11/14/24 04:23 Hydrocodone/Acetaminophen (*Crx) 5-325 Mg Tablet PO 1 tab Q4H PRN Administration Pain Rated 4-6 Albuterol/Ipratropium 3 ml 11/13/24 22:01 Ipratropium 0.5 Mg/Albuterol Sulfate 2.5 Mg Ampul.Neb 3 Ml INHALATION Q6HRT PRN Wheezing Benzonatate 100 mg 11/13/24 22:01 11/13/24 23:39 Benzonatate 100 Mg Capsule PO 100 mg TID PRN Administration Cough Dextrose 12.5 gm 11/14/24 02:35 Dextrose 50% 25 Gm/50 Ml Syringe IV PUSH PRN PRN Hypoglycemia Protocol Enoxaparin Sodium 40 mg 11/14/24 09:00 Enoxaparin 40 Mg/0.4 Ml Syringe SUB-Q DAILY POOL Glucagon 1 mg 11/14/24 02:35 Glucagon For Inj 1 Mg Vial IM PRN PRN Hypoglycemia Protocol Glucose 15 gm 11/14/24 02:35 Glucose Oral Gel 15 Gm Of Glucse In 37.5 Gm Tube PO PRN PRN Hypoglycemia Protocol Hydromorphone HCl 1 mg 11/14/24 01:02 11/14/24 05:31 Hydromorphone Hcl Inj (*Crx) 2 Mg/Ml Vial IV PUSH 1 mg Q3H PRN Administration Pain Rated 7-10 Sodium Chloride 1,000 mls @ 125 mls/hr 11/13/24 18:55 11/14/24 01:20 Normal Saline Iv IV CONT Not Given .Q8H POOL Metronidazole 500 mg in 100 mls @ 100 mls/hr 11/14/24 04:00 11/14/24 05:16 Flagyl 500 Mg/Iso Soln 100 Ml IVPB 100 mls/hr Q8H POOL Administration Aztreonam 1 gm/ Sodium 50 mls @ 100 mls/hr 11/14/24 04:00 11/14/24 04:47 Chloride IVPB Infused Q8H POOL Infusion Dextrose 1,000 mls @ 100 mls/hr 11/14/24 02:35 Dextrose 5% 1,000 Ml IVPB PRN PRN Hypoglycemia Protocol Insulin Aspart 2 - 5 units 11/14/24 08:00 Insulin Aspart (*Bkc) 100 Units/Ml SUB-Q TIDWM [facility] Protocol Metoprolol Tartrate 5 mg 11/13/24 22:55 Metoprolol Tartrate Inj 5 Mg/5 Ml Vial IV PUSH Q4H PRN Hypertension Ondansetron HCl 4 mg 11/13/24 22:55 Ondansetron Inj 4 Mg/2 Ml Vial IV PUSH Q4H PRN Nausea And Vomiting Oxycodone HCl 5 mg 11/13/24 22:55 Oxycodone Hcl (*Crx) 5 Mg Tab Ir PO Q4H PRN Pain Rated 7-10 Pantoprazole Sodium 40 mg 11/14/24 09:00 Pantoprazole 40 Mg Tablet PO QAM [facility] Labs Labs: Laboratory Results - last 24 hr 11/13/24 11/13/24 11/13/24 18:21 18:54 23:39 WBC 13.1 H RBC 4.99 Hgb 15.3 Hct 45.3 MCV 90.8 MCH 30.7 MCHC 33.8 RDW 12.9 Plt Count 215 MPV 8.9 Immature Gran % (Auto) 0.5 Neut % (Auto) 76.4 H Lymph % (Auto) 15.4 L [place] % (Auto) 7.2 Eos % (Auto) 0.2 Baso % (Auto) 0.3 Lymph # (Auto) 2.02 [place] # (Auto) 0.9 H Eos # (Auto) 0.0 Baso # (Auto) 0.0 Abs Immat Gran (auto) 0.07 H Absolute Neuts (auto) 10.0 H Absolute Nucleated RBC 0.000 Nucleated RBC % 0.0 Sodium 136 L Potassium 4.5 Chloride 99 Carbon Dioxide 27 Anion Gap 10 BUN 18 Creatinine 1.05 Estim Creat Clear Calc 106 Estimated GFR > 60 Glucose 147 H POC Capillary Glucose Lactic Acid 1.6 1.4 Calcium 10.0 Total Bilirubin 0.7 AST 27 ALT 24 Alkaline Phosphatase 81 Total Protein 8.5 H Albumin 4.8 Lipase 23 11/14/24 11/14/24 03:09 05:40 WBC RBC Hgb Hct MCV MCH MCHC RDW Plt Count MPV Immature Gran % (Auto) Neut % (Auto) Lymph % (Auto) [place] % (Auto) Eos % (Auto) Baso % (Auto) Lymph # (Auto) [place] # (Auto) Eos # (Auto) Baso # (Auto) Abs Immat Gran (auto) Absolute Neuts (auto) Absolute Nucleated RBC Nucleated RBC % Sodium 135 L Potassium 4.4 Chloride 104 Carbon Dioxide 23 Anion Gap 8 BUN 20 Creatinine 1.00 Estim Creat Clear Calc 113 Estimated GFR > 60 Glucose 165 H POC Capillary Glucose 174 H Lactic Acid Calcium 8.3 L Total Bilirubin 0.7 AST 20 ALT 19 Alkaline Phosphatase 60 Total Protein 6.7 Albumin 3.8 Lipase Quality VTE Prophylaxis VTE prophylaxis: pharmacologic ordered (Lovenox 40 mg subQ daily.) Hospitalist MIPS Advance Care Plan I have confirmed that the patient's Advanced Care Plan is present, code status is documented, or surrogate decision maker is listed in patient medical record.: Yes Medication Reconciliation I have utilized all available resources to obtain, update and review the patients current medications (includes all prescriptions, OTC, herbals, cannabis, and nutritional supplements).: Yes
[2024-11-14 08:31] LABS: Band Neutrophils Percent 15 % (0-6); Lymphocytes Absolute Manual 1.53 K/mm3 (1.1-4.5); Lymphocytes Percent Manual 19 % (18-44); Monocytes Absolute Manual 0.81 K/mm3 (0.1-0.90); Monocytes Percent Manual 10 % (3-9); Neutrophils Absolute Manual 5.75 K/mm3 (1.3-6.7); Neutrophils Percent Manual 56 % (46-73); Schistocytes None Seen; Total Cells Counted 100
[2024-11-14] MEDS: PANTOPRAZOLE 40 MG TABLET PO (08:53)
[2024-11-14] MEDS: BENZONATATE 100 MG CAPSULE PO ×4 (08:53→20:34)
[2024-11-14] MEDS: ENOXAPARIN 40 MG/0.4 ML SYRINGE SUB-Q (08:53)
[2024-11-14] MEDS: SODIUM CHLORIDE 0.9% IV 1,000 ML 125 ML IV CONT ×2 (11:59→23:52)
[2024-11-14] MEDS: ONDANSETRON INJ 4 MG/2 ML VIAL IV PUSH (12:03)
[2024-11-14] MEDS: oxyCODONE HCL (*CRX) 5 MG TAB IR PO ×3 (12:03→20:16)
--- NOTE | 2024-11-14 14:07 | P.PNGS_ITS ---
Progress Note: A&P Assessment and Plan (1) Acute perforated appendicitis: Code(s): K35.32 - Acute appendicitis with perforation, localized peritonitis, and gangrene, without abscess Status: Acute Assessment and Plan: POD1 s/p laparoscopic appendectomy with placement of Jaiden drain. Patient is doing generally well today, however he did note some mild nausea, therefore has not eaten much of his liquid diet. Will plan to keep this diet for tonight and hopefully advance to solids tomorrow. Patient has not ambulated much, but family at bedside is very encouraging and hopes to get him up to the chair [facility]. No BM yet. Continue with IV antibiotics and hydration. Encourage ambulation. Will follow with serial abdominal labs. (2) Type 2 diabetes mellitus without complications: Qualifiers: Diabetes mellitus [employer] insulin use: without [employer] use Qualified Code(s): E11.9 - Type 2 diabetes mellitus without complications Code(s): E11.9 - Type 2 diabetes mellitus without complications Status: Acute Plan Discussed patient's case and plan of care with Dr. Bain. Subjective Subjective Date/Time Seen: 11/14/24 14:07 Post Op day: 1 Patient reports: no new complaints Interval history: Patient is doing well today. No acute events overnight. Afebrile. Notes some mild nausea and ?bubbling in his stomach, therefore he has only eaten a small amount of his liquid diet. Notes diffuse lower abdominal pain, decreased from yesterday. No BM yet. Has not ambulated much. Exam Const: General: comfortable and no acute distress GI: Other: Laparoscopic incisions clean and dry with glue intact. No evidence of infection, dehiscence, or skin necrosis. VIDHYA drain with small amount of serosanguineous fluid in the bulb. Diffuse lower abdominal tenderness to palpation. Objective Data Vital Signs Vital Signs: Vital Signs - 24 hr 11/13/24 18:16 11/13/24 19:04 11/13/24 19:05 Temperature 98.4 F 98.0 F Pulse Rate 94 96 103 H Respiratory Rate 16 20 18 Blood Pressure 127/69 142/71 H 142/71 H Pulse Oximetry 96 96 100 Oxygen Delivery Room Air Oxygen Flow Rate 11/13/24 19:45 11/13/24 21:50 11/13/24 22:05 Temperature 102.5 F H 98.8 F Pulse Rate 112 H 105 H 109 H Respiratory Rate 22 H 26 H 18 Blood Pressure 145/53 H 120/62 128/75 Pulse Oximetry 92 100 100 Oxygen Delivery Simple Face Mask Simple Face Mask Oxygen Flow Rate 8 8 11/13/24 22:20 11/13/24 22:35 11/13/24 22:50 Temperature 98.4 F Pulse Rate 107 H 111 H 109 H Respiratory Rate 18 16 16 Blood Pressure 125/80 110/73 110/73 Pulse Oximetry 100 100 100 Oxygen Delivery Simple Face Mask Room Air Room Air Oxygen Flow Rate 8 11/13/24 23:20 11/13/24 23:35 11/14/24 00:00 Temperature 98.8 F 98.4 F 99 F Pulse Rate 109 H 105 H 102 H Respiratory Rate 18 18 18 Blood Pressure 115/72 141/73 H 126/69 Pulse Oximetry 92 93 93 Oxygen Delivery Oxygen Flow Rate 11/14/24 00:00 11/14/24 01:00 11/14/24 01:26 Temperature 98.2 F Pulse Rate 100 101 H Respiratory Rate 18 Blood Pressure 113/69 Pulse Oximetry 95 93 Oxygen Delivery Nasal Cannula Oxygen Flow Rate 2 11/14/24 04:00 11/14/24 04:38 11/14/24 08:00 Temperature 97.9 F Pulse Rate 93 92 Respiratory Rate 18 Blood Pressure 113/65 Pulse Oximetry 97 95 Oxygen Delivery Nasal Cannula Oxygen Flow Rate 1 11/14/24 08:25 11/14/24 09:09 11/14/24 12:00 Temperature Pulse Rate 95 103 H Respiratory Rate Blood Pressure Pulse Oximetry 95 Oxygen Delivery Nasal Cannula Oxygen Flow Rate 1 Intake/Output Intake/Output: Intake & Output 11/11/24 11/12/24 11/13/24 11/14/24 23:59 23:59 23:59 23:59 Intake Total 1000 1320 Output Total 20 Balance 1000 1300 Meds/Results Medications: Active Medications Generic Name Dose Route Start Last Admin Trade Name Freq PRN Reason Stop Dose Admin Acetaminophen 1,000 mg 11/13/24 22:55 Acetaminophen 500 Mg Tablet PO Q6H PRN Mild Pain (1-3) or Fever Hydrocodone Bitart/Acetaminophen 1 tab 11/13/24 22:55 11/14/24 04:23 Hydrocodone/Acetaminophen (*Crx) 5-325 Mg Tablet PO 1 tab Q4H PRN Administration Pain Rated 4-6 Albuterol/Ipratropium 3 ml 11/13/24 22:01 Ipratropium 0.5 Mg/Albuterol Sulfate 2.5 Mg Ampul.Neb 3 Ml INHALATION Q6HRT PRN Wheezing Benzonatate 100 mg 11/13/24 22:01 11/14/24 12:03 Benzonatate 100 Mg Capsule PO 100 mg TID PRN Administration Cough Dextrose 12.5 gm 11/14/24 02:35 Dextrose 50% 25 Gm/50 Ml Syringe IV PUSH PRN PRN Hypoglycemia Protocol Enoxaparin Sodium 40 mg 11/14/24 09:00 11/14/24 08:53 Enoxaparin 40 Mg/0.4 Ml Syringe SUB-Q 40 mg DAILY POOL Administration Glucagon 1 mg 11/14/24 02:35 Glucagon For Inj 1 Mg Vial IM PRN PRN Hypoglycemia Protocol Glucose 15 gm 11/14/24 02:35 Glucose Oral Gel 15 Gm Of Glucse In 37.5 Gm Tube PO PRN PRN Hypoglycemia Protocol Hydromorphone HCl 1 mg 11/14/24 01:02 11/14/24 08:55 Hydromorphone Hcl Inj (*Crx) 2 Mg/Ml Vial IV PUSH 1 mg Q3H PRN Administration Pain Rated 7-10 Sodium Chloride 1,000 mls @ 125 mls/hr 11/13/24 18:55 11/14/24 11:59 Normal Saline Iv IV CONT 125 mls/hr .Q8H POOL Administration Metronidazole 500 mg in 100 mls @ 100 mls/hr 11/14/24 04:00 11/14/24 12:55 Flagyl 500 Mg/Iso Soln 100 Ml IVPB 100 mls/hr Q8H POOL Administration Aztreonam 1 gm/ Sodium 50 mls @ 100 mls/hr 11/14/24 04:00 11/14/24 12:30 Chloride IVPB Infused Q8H POOL Infusion Dextrose 1,000 mls @ 100 mls/hr 11/14/24 02:35 Dextrose 5% 1,000 Ml IVPB PRN PRN Hypoglycemia Protocol Insulin Aspart 2 - 5 units 11/14/24 08:00 11/14/24 13:02 Insulin Aspart (*Bkc) 100 Units/Ml SUB-Q Not Given TIDWM POOL Protocol Metoprolol Tartrate 5 mg 11/13/24 22:55 Metoprolol Tartrate Inj 5 Mg/5 Ml Vial IV PUSH Q4H PRN Hypertension Ondansetron HCl 4 mg 11/13/24 22:55 11/14/24 12:03 Ondansetron Inj 4 Mg/2 Ml Vial IV PUSH 4 mg Q4H PRN Administration Nausea And Vomiting Oxycodone HCl 5 mg 11/13/24 22:55 11/14/24 12:03 Oxycodone Hcl (*Crx) 5 Mg Tab Ir PO 5 mg Q4H PRN Administration Pain Rated 7-10 Pantoprazole Sodium 40 mg 11/14/24 09:00 11/14/24 08:53 Pantoprazole 40 Mg Tablet PO 40 mg QAM POOL Administration Labs Labs: Laboratory Results - last 24 hr 11/13/24 11/13/24 11/13/24 18:21 18:54 23:39 WBC 13.1 H RBC 4.99 Hgb 15.3 Hct 45.3 MCV 90.8 MCH 30.7 MCHC 33.8 RDW 12.9 Plt Count 215 MPV 8.9 Immature Gran % (Auto) 0.5 Neut % (Auto) 76.4 H Lymph % (Auto) 15.4 L [place] % (Auto) 7.2 Eos % (Auto) 0.2 Baso % (Auto) 0.3 Lymph # (Auto) 2.02 [place] # (Auto) 0.9 H Eos # (Auto) 0.0 Baso # (Auto) 0.0 Abs Immat Gran (auto) 0.07 H Absolute Neuts (auto) 10.0 H Absolute Nucleated RBC 0.000 Total Counted Neutrophils % (Manual) Band Neutrophils % Lymphocytes % (Manual) Monocytes % (Manual) Nucleated RBC % 0.0 Abs Neuts (Manual) Abs Lymphs (Manual) Abs Monocytes (Manual) Platelet Estimate Schistocytes Sodium 136 L Potassium 4.5 Chloride 99 Carbon Dioxide 27 Anion Gap 10 BUN 18 Creatinine 1.05 Estim Creat Clear Calc 106 Estimated GFR > 60 Glucose 147 H POC Capillary Glucose Lactic Acid 1.6 1.4 Calcium 10.0 Total Bilirubin 0.7 AST 27 ALT 24 Alkaline Phosphatase 81 Total Protein 8.5 H Albumin 4.8 Lipase 11/14/24 11/14/24 11/14/24 03:09 05:40 08:08 WBC 8.1 RBC 4.34 L Hgb 13.5 L Hct 40.3 L MCV 92.9 MCH 31.1 MCHC 33.5 RDW 13.0 Plt Count 187 MPV 8.9 Immature Gran % (Auto) Not Reportable Neut % (Auto) Not Reportable Lymph % (Auto) Not Reportable [place] % (Auto) Not Reportable Eos % (Auto) Not Reportable Baso % (Auto) Not Reportable Lymph # (Auto) Not Reportable [place] # (Auto) Not Reportable Eos # (Auto) Not Reportable Baso # (Auto) Not Reportable Abs Immat Gran (auto) Not Reportable Absolute Neuts (auto) Not Reportable Absolute Nucleated RBC Not Reportable Total Counted 100 Neutrophils % (Manual) 56 Band Neutrophils % 15 H Lymphocytes % (Manual) 19 Monocytes % (Manual) 10 H Nucleated RBC % Not Reportable Abs Neuts (Manual) 5.75 Abs Lymphs (Manual) 1.53 Abs Monocytes (Manual) 0.81 Platelet Estimate Adequate Schistocytes None seen Sodium 135 L Potassium 4.4 Chloride 104 Carbon Dioxide 23 Anion Gap 8 BUN 20 Creatinine 1.00 Estim Creat Clear Calc 113 Estimated GFR > 60 Glucose 165 H POC Capillary Glucose 174 H 132 H Lactic Acid Calcium 8.3 L Total Bilirubin 0.7 AST 20 ALT 19 Alkaline Phosphatase 60 Total Protein 6.7 Albumin 3.8 Lipase 11/14/24 11:42 WBC RBC Hgb Hct MCV MCH MCHC RDW Plt Count MPV Immature Gran % (Auto) Neut % (Auto) Lymph % (Auto) [place] % (Auto) Eos % (Auto) Baso % (Auto) Lymph # (Auto) [place] # (Auto) Eos # (Auto) Baso # (Auto) Abs Immat Gran (auto) Absolute Neuts (auto) Absolute Nucleated RBC Total Counted Neutrophils % (Manual) Band Neutrophils % Lymphocytes % (Manual) Monocytes % (Manual) Nucleated RBC % Abs Neuts (Manual) Abs Lymphs (Manual) Abs Monocytes (Manual) Platelet Estimate Schistocytes Sodium Potassium Chloride Carbon Dioxide Anion Gap BUN Creatinine Estim Creat Clear Calc Estimated GFR Glucose POC Capillary Glucose 134 H Lactic Acid Calcium Total Bilirubin AST ALT Alkaline Phosphatase Total Protein Albumin Lipase
[2024-11-15] VITALS (13 sets, daily range): BP systolic 120–142; BP diastolic 70–82; PULSE 96–123; RESP 16–20; TEMP 36.5–37.6; O2SAT 86–93; BMI 40.3
[2024-11-15] MEDS: oxyCODONE HCL (*CRX) 5 MG TAB IR PO ×3 (03:10→13:59)
[2024-11-15] MEDS: metroNIDAZOLE 500 MG/ISO 100ML 500 MG/100 ML BAG 100 MG IVPB ×2 (03:12→12:33)
[2024-11-15] MEDS: BENZONATATE 100 MG CAPSULE PO ×3 (03:18→17:23)
[2024-11-15] MEDS: ACETAMINOPHEN 500 MG TABLET 1000 MG PO ×4 (03:34→22:52)
[2024-11-15] MEDS: AZTREONAM 1 GM in SODIUM CHLORIDE 0.9% IV 50 ML IVPB ×2 (05:17→11:39)
[2024-11-15 06:42] LABS: Hematocrit 36.7 % (42.0-52.0); Hemoglobin 12.7 g/dL (14.0-18.0); Immature Granulocyte Percent A 0.6 % (0-0.5); Lymphocytes Absolute Auto 1.25 K/mm3 (0.9-3.2); Mean Corpuscular HGB Conc 34.6 g/dl (32-36); Mean Corpuscular Hemoglobin 32.7 pg (26-34); Mean Corpuscular Volume 94.6 fl (80-100); Nucleated Red Blood Cells Absolute Auto 0.000 K/mm3 (0.0-0.012); Nucleated Red Blood Cells Perc 0.0 % (0.0-0.2); Platelet Count Result 173 k/mm3 (150-375); Red Blood Count 3.88 M/mm3 (4.6-6.20); White Blood Count 10.7 K/mm3 (4.5-10.0)
--- NOTE | 2024-11-15 08:13 | PM.IMPN ---
Progress Note: A&P Assessment and Plan (1) Acute perforated appendicitis: Code(s): K35.32 - Acute appendicitis with perforation, localized peritonitis, and gangrene, without abscess Status: Acute (2) Sepsis: Qualifiers: Sepsis acute organ dysfunction status: with acute organ dysfunction Sepsis type: sepsis due to unspecified organism Severe sepsis acute organ dysfunction type: encephalopathy Severe sepsis shock status: without septic shock Qualified Code(s): A41.9 - Sepsis, unspecified organism; R65.20 - Severe sepsis without septic shock; G93.41 - Metabolic encephalopathy Code(s): A41.9 - Sepsis, unspecified organism Status: Acute (3) Type 2 diabetes mellitus without complications: Qualifiers: Diabetes mellitus terminal system operator insulin use: without detention use Qualified Code(s): E11.9 - Type 2 diabetes mellitus without complications Code(s): E11.9 - Type 2 diabetes mellitus without complications Status: Acute (4) Loud snoring: Code(s): R06.83 - Snoring Status: Acute (5) Hepatic steatosis: Code(s): K76.0 - Fatty (change of) liver, not elsewhere classified Status: Acute Plan Perforated appendicitis Sepsis Postop day 1 emergent laparoscopic cholecystectomy VIDHYA drain to right abdomen with serosanguineous drainage Abdomen mildly distended. Passing gas Surgery consulted, appreciate recommendations --Following drain output --IV fluids, encourage PO --Continuing antibiotics. Trial of Zosyn today. Remote history of mild rash as a child. Discussed with pharmacy and testing PCN allergy --Changed Aztreonam, Flagyl to Zosyn. Bendryl prn dose ordered Acute pain Due to perforated appendicitis and postop pain --Acetaminophen, Oxy, dilaudid p.r.n. --miralax daily Tachycardia Dizziness Check orthostatics EKG On fluids On Lovenox for DVT prophylaxis. No chest or leg pain. Nausea/Vomiting No nausea this morning. --Zofran/ Compazine p.r.n.. --recommended increased activity Elevated blood sugars Prediabetes Diet controlled. Blood sugar 174 on arrival, likely stress response. 132-155 today --Continue Acetaminophen, Oxy, dilaudid p.r.n. --If blood sugars trending up, add SSI -- HgbA1c 6.3, prediabetic. Discussed glucometer for home, diet control. metform after acute illness Dysuria Reported pain when voiding 11/14 and hematuria. RN reports urine was dark but not bloody. Dysuria may be traumatic and may resolve -- UA pending Acute respiratory failure with hypoxia Snoring Required 2L O2 this morning, RA this afternoon, 93%, 97% with deep breaths --Apnealink pending --Wean O2 as tolerated Hepatic steatosis Statin outpatient. Lipid profile was normal Time Spent With Patient Time: 58 minutes Subjective Date/time seen: 11/15/24 08:13 Interval history: Pain and nausea improved Still having dizziness with activity. Checking orthostatics Tachycardic overnight with a low grade temp. Checking EKG Also still having dysuria. UA pending. VIDHYA drain less bloody, minimal serosanguineous output this morning but had been emptied recently On 2L O2 overnight. Evaluating for sleep apea pending. Chest x-ray showed atelectasis vs developing pneumonia Rash from PCN remote and mild, as a child, doesn't know specifics. Discussed with patient and pharmacy and trial of Zosyn today. Stopped aztreonam and flagyl Review of Systems Review of Systems: 12 systems were reviewed with pertinent positives and negatives per HPI. Except as documented in the HPI, all other systems were reviewed and are negative. Exam Narrative: General - Awake and alert. No acute distress Eyes - PERRLA, EOM intact ENT - No thrush, No erythema Neck - No noticeable or palpable swelling Lymph Nodes - No lymphadenopathy Cardiovascular - RRR no m/r/g, no JVD Lungs: Clear to auscultation, No wheezing, use of accessory muscles, no crackles or wheezes. Skin - Skin warm and dry, no wounds or rashes Abdomen - Normal bowel sounds, abdomen soft and nontender, Mildly distended. Right VIDHYA drain with serosanguinous drainage Extremities - Trace generalized nonpitting edema, cyanosis or clubbing Musculoskeletal - 5/5 strength, normal range of motion, no swollen or erythematous joints. Neurological ? Alert and oriented x 3, CN 2-12 grossly intact. Psych: Normal mood and affect Objective Data Vital Signs Vital Signs: Vital Signs - 24 hr 11/14/24 08:25 11/14/24 09:09 11/14/24 12:00 Temperature Pulse Rate 95 103 H Respiratory Rate Blood Pressure Pulse Oximetry 95 Oxygen Delivery Nasal Cannula Oxygen Flow Rate 1 11/14/24 14:00 11/14/24 14:53 11/14/24 16:00 Temperature 98.2 F Pulse Rate 110 H 110 H Respiratory Rate 14 Blood Pressure 112/74 Pulse Oximetry 90 97 Oxygen Delivery Room Air Oxygen Flow Rate 11/14/24 20:00 11/14/24 20:00 11/14/24 22:00 Temperature 99.1 F Pulse Rate 119 H 115 H Respiratory Rate 18 Blood Pressure 124/71 Pulse Oximetry 92 Oxygen Delivery Room Air Oxygen Flow Rate 11/15/24 00:00 11/15/24 03:34 11/15/24 03:45 Temperature 99.7 F H Pulse Rate 120 H Respiratory Rate Blood Pressure Pulse Oximetry 86 L Oxygen Delivery Room Air Oxygen Flow Rate 11/15/24 03:49 11/15/24 03:49 11/15/24 04:00 Temperature 99.7 F H Pulse Rate 121 H 123 H Respiratory Rate 20 Blood Pressure 142/78 H Pulse Oximetry 91 91 Oxygen Delivery Nasal Cannula Oxygen Flow Rate 2 11/15/24 05:14 Temperature 97.7 F Pulse Rate Respiratory Rate Blood Pressure Pulse Oximetry Oxygen Delivery Oxygen Flow Rate Intake/Output Intake/Output: Intake & Output 11/12/24 11/13/24 11/14/24 11/15/24 23:59 23:59 23:59 23:59 Intake Total 1000 4110 250 Output Total 20 625 Balance 1000 4090 -375 Meds/Results Medications: Active Medications Generic Name Dose Route Start Last Admin Trade Name Freq PRN Reason Stop Dose Admin Acetaminophen 1,000 mg 11/13/24 22:55 11/15/24 03:34 Acetaminophen 500 Mg Tablet PO 1,000 mg Q6H PRN Administration Mild Pain (1-3) or Fever Hydrocodone Bitart/Acetaminophen 1 tab 11/13/24 22:55 11/14/24 04:23 Hydrocodone/Acetaminophen (*Crx) 5-325 Mg Tablet PO 1 tab Q4H PRN Administration Pain Rated 4-6 Albuterol/Ipratropium 3 ml 11/13/24 22:01 Ipratropium 0.5 Mg/Albuterol Sulfate 2.5 Mg Ampul.Neb 3 Ml INHALATION Q6HRT PRN Wheezing Benzonatate 100 mg 11/13/24 22:01 11/15/24 03:18 Benzonatate 100 Mg Capsule PO 100 mg TID PRN Administration Cough Dextrose 12.5 gm 11/14/24 02:35 Dextrose 50% 25 Gm/50 Ml Syringe IV PUSH PRN PRN Hypoglycemia Protocol Enoxaparin Sodium 40 mg 11/14/24 09:00 11/14/24 08:53 Enoxaparin 40 Mg/0.4 Ml Syringe SUB-Q 40 mg DAILY POOL Administration Glucagon 1 mg 11/14/24 02:35 Glucagon For Inj 1 Mg Vial IM PRN PRN Hypoglycemia Protocol Glucose 15 gm 11/14/24 02:35 Glucose Oral Gel 15 Gm Of Glucse In 37.5 Gm Tube PO PRN PRN Hypoglycemia Protocol Hydromorphone HCl 1 mg 11/14/24 01:02 11/14/24 08:55 Hydromorphone Hcl Inj (*Crx) 2 Mg/Ml Vial IV PUSH 1 mg Q3H PRN Administration Pain Rated 7-10 Sodium Chloride 1,000 mls @ 125 mls/hr 11/13/24 18:55 11/14/24 23:52 Normal Saline Iv IV CONT 125 mls/hr .Q8H POOL Administration Metronidazole 500 mg in 100 mls @ 100 mls/hr 11/14/24 04:00 11/15/24 04:12 Flagyl 500 Mg/Iso Soln 100 Ml IVPB Infused Q8H POOL Infusion Aztreonam 1 gm/ Sodium 50 mls @ 100 mls/hr 11/14/24 04:00 11/15/24 05:17 Chloride IVPB 100 mls/hr Q8H POOL Administration Dextrose 1,000 mls @ 100 mls/hr 11/14/24 02:35 Dextrose 5% 1,000 Ml IVPB PRN PRN Hypoglycemia Protocol Insulin Aspart 2 - 5 units 11/14/24 08:00 11/14/24 17:30 Insulin Aspart (*Bkc) 100 Units/Ml SUB-Q Not Given TIDWM POOL Protocol Metoprolol Tartrate 5 mg 11/13/24 22:55 Metoprolol Tartrate Inj 5 Mg/5 Ml Vial IV PUSH Q4H PRN Hypertension Ondansetron HCl 4 mg 11/13/24 22:55 11/14/24 12:03 Ondansetron Inj 4 Mg/2 Ml Vial IV PUSH 4 mg Q4H PRN Administration Nausea And Vomiting Oxycodone HCl 5 mg 11/13/24 22:55 11/15/24 07:39 Oxycodone Hcl (*Crx) 5 Mg Tab Ir PO 5 mg Q4H PRN Administration Pain Rated 7-10 Pantoprazole Sodium 40 mg 11/14/24 09:00 11/14/24 08:53 Pantoprazole 40 Mg Tablet PO 40 mg QAM POOL Administration Prochlorperazine Edisylate 5 mg 11/14/24 15:26 Prochlorperazine Edisylate 10 Mg/2 Ml Vial IV PUSH Q6H PRN Nausea And Vomiting Labs Labs: Laboratory Results - last 24 hr 11/14/24 11/14/24 11/14/24 05:40 08:08 11:42 WBC 8.1 RBC 4.34 L Hgb 13.5 L Hct 40.3 L MCV 92.9 MCH 31.1 MCHC 33.5 RDW 13.0 Plt Count 187 MPV 8.9 Immature Gran % (Auto) Not Reportable Neut % (Auto) Not Reportable Lymph % (Auto) Not Reportable [place] % (Auto) Not Reportable Eos % (Auto) Not Reportable Baso % (Auto) Not Reportable Lymph # (Auto) Not Reportable [place] # (Auto) Not Reportable Eos # (Auto) Not Reportable Baso # (Auto) Not Reportable Abs Immat Gran (auto) Not Reportable Absolute Neuts (auto) Not Reportable Absolute Nucleated RBC Not Reportable Total Counted 100 Neutrophils % (Manual) 56 Band Neutrophils % 15 H Lymphocytes % (Manual) 19 Monocytes % (Manual) 10 H Nucleated RBC % Not Reportable Abs Neuts (Manual) 5.75 Abs Lymphs (Manual) 1.53 Abs Monocytes (Manual) 0.81 Platelet Estimate Adequate Schistocytes None seen POC Capillary Glucose 132 H 134 H 11/14/24 11/14/24 11/15/24 16:41 22:55 05:26 WBC 10.7 H RBC 3.88 L Hgb 12.7 L Hct 36.7 L MCV 94.6 MCH 32.7 D MCHC 34.6 RDW 13.1 Plt Count 173 MPV 9.2 Immature Gran % (Auto) 0.6 H Neut % (Auto) 81.7 H Lymph % (Auto) 11.6 L [place] % (Auto) 5.9 Eos % (Auto) 0.0 Baso % (Auto) 0.2 Lymph # (Auto) 1.25 [place] # (Auto) 0.6 Eos # (Auto) 0.0 Baso # (Auto) 0.0 Abs Immat Gran (auto) 0.06 H Absolute Neuts (auto) 8.8 H Absolute Nucleated RBC 0.000 Total Counted Neutrophils % (Manual) Band Neutrophils % Lymphocytes % (Manual) Monocytes % (Manual) Nucleated RBC % 0.0 Abs Neuts (Manual) Abs Lymphs (Manual) Abs Monocytes (Manual) Platelet Estimate Schistocytes POC Capillary Glucose 115 H 133 H Quality VTE Prophylaxis VTE prophylaxis: pharmacologic ordered (Lovenox 40 mg subQ daily.) Hospitalist MIPS Advance Care Plan I have confirmed that the patient's Advanced Care Plan is present, code status is documented, or surrogate decision maker is listed in patient medical record.: Yes Medication Reconciliation I have utilized all available resources to obtain, update and review the patients current medications (includes all prescriptions, OTC, herbals, cannabis, and nutritional supplements).: Yes
[2024-11-15 08:34] LABS: Anion Gap 8 mmol/L (4-12); Blood Urea Nitrogen 15 mg/dL (9-20); Calcium 8.2 mg/dL (8.4-10.2); Carbon Dioxide 22 mmol/L (22-30); Chloride 107 mmol/L (98-107); Cholesterol 163 mg/dL (0-200); Estimated CRCL calculation 104 ml/min; Estimated Glomerular Filt Rate > 60; Glucose 142 mg/dL (65-110); HDL Direct 33 mg/dL; Magnesium 2.1 mg/dL (1.6-2.3); Potassium 3.7 mmol/L (3.4-5.0); Sodium 137 mmol/L (137-145); Triglycerides 114 mg/dL (<150)
[2024-11-15] MEDS: PANTOPRAZOLE 40 MG TABLET PO (08:46)
[2024-11-15] MEDS: ENOXAPARIN 40 MG/0.4 ML SYRINGE SUB-Q (08:46)
[2024-11-15 09:10] LABS: Hemoglobin A1C 6.3 % (<5.7)
--- NOTE | 2024-11-15 10:53 | P.PNGS_ITS ---
Progress Note: A&P Assessment and Plan (1) Acute perforated appendicitis: Code(s): K35.32 - Acute appendicitis with perforation, localized peritonitis, and gangrene, without abscess Status: Acute Assessment and Plan: POD2 s/p laparoscopic appendectomy with placement of Jaiden drain. The patient did spike a low-grade fever overnight, with a dip in his O2. Pulse rate in the 120s. He was on 2 L of O2 via nasal cannula, now back on room air. WBC count this morning 10.7. Abdominal exam is fairly benign. No bowel movement yet, bowel sounds present. Patient passing flatus. Chest x-ray ordered, as well as urinalysis. Will follow up with results. Patient encouraged to ambulate today. Diet advanced to full liquids. Patient will stay today, with hopeful discharge tomorrow if labs normalize and imaging benign. 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 Bain. Subjective Subjective Date/Time Seen: 11/15/24 10:53 Post Op day: 2 Patient reports: no new complaints Interval history: Patient is doing well upon interview today. However, he did spike a low-grade f ever of 99.7 overnight. Pulse rate tachy 123. Patient's O2 dipped down to 86 and he was placed on 2 L of O2 nasal cannula. O2 removed by nursing staff today upon visit, as he has been stable. WBC count this morning 10.7, up from 8.1 yesterday. Patient has been doing well on clear liquids, with no nausea or vomiting. He does note some dizziness and instability with ambulation. Abdominal pain decreased. VIDHYA drain with minimal serosanguineous fluid. Exam GI: Other: Laparoscopic incisions clean and dry with glue intact. No evidence of infection, dehiscence, or skin necrosis. VIDHYA drain with scant serosanguineous fluid in the bulb. Diffuse lower abdominal tenderness to palpation. Objective Data Vital Signs Vital Signs: Vital Signs - 24 hr 11/14/24 12:00 11/14/24 14:00 11/14/24 14:53 Temperature 98.2 F Pulse Rate 103 H 110 H Respiratory Rate 14 Blood Pressure 112/74 Pulse Oximetry 90 97 Oxygen Delivery Room Air Oxygen Flow Rate 11/14/24 16:00 11/14/24 20:00 11/14/24 20:00 Temperature Pulse Rate 110 H 119 H Respiratory Rate Blood Pressure Pulse Oximetry Oxygen Delivery Room Air Oxygen Flow Rate 11/14/24 22:00 11/15/24 00:00 11/15/24 03:34 Temperature 99.1 F 99.7 F H Pulse Rate 115 H 120 H Respiratory Rate 18 Blood Pressure 124/71 Pulse Oximetry 92 Oxygen Delivery Oxygen Flow Rate 11/15/24 03:45 11/15/24 03:49 11/15/24 03:49 Temperature 99.7 F H Pulse Rate 121 H Respiratory Rate 20 Blood Pressure 142/78 H Pulse Oximetry 86 L 91 91 Oxygen Delivery Room Air Nasal Cannula Oxygen Flow Rate 2 11/15/24 04:00 11/15/24 05:14 Temperature 97.7 F Pulse Rate 123 H Respiratory Rate Blood Pressure Pulse Oximetry Oxygen Delivery Oxygen Flow Rate Intake/Output Intake/Output: Intake & Output 11/12/24 11/13/24 11/14/24 11/15/24 23:59 23:59 23:59 23:59 Intake Total 1000 4110 250 Output Total 20 625 Balance 1000 4090 -375 Meds/Results Medications: Active Medications Generic Name Dose Route Start Last Admin Trade Name Freq PRN Reason Stop Dose Admin Acetaminophen 1,000 mg 11/13/24 22:55 11/15/24 10:52 Acetaminophen 500 Mg Tablet PO 1,000 mg Q6H PRN Administration Mild Pain (1-3) or Fever Hydrocodone Bitart/Acetaminophen 1 tab 11/13/24 22:55 11/14/24 04:23 Hydrocodone/Acetaminophen (*Crx) 5-325 Mg Tablet PO 1 tab Q4H PRN Administration Pain Rated 4-6 Albuterol/Ipratropium 3 ml 11/13/24 22:01 Ipratropium 0.5 Mg/Albuterol Sulfate 2.5 Mg Ampul.Neb 3 Ml INHALATION Q6HRT PRN Wheezing Benzonatate 100 mg 11/13/24 22:01 11/15/24 08:46 Benzonatate 100 Mg Capsule PO 100 mg TID PRN Administration Cough Dextrose 12.5 gm 11/14/24 02:35 Dextrose 50% 25 Gm/50 Ml Syringe IV PUSH PRN PRN Hypoglycemia Protocol Enoxaparin Sodium 40 mg 11/14/24 09:00 11/15/24 08:46 Enoxaparin 40 Mg/0.4 Ml Syringe SUB-Q 40 mg DAILY POOL Administration Glucagon 1 mg 11/14/24 02:35 Glucagon For Inj 1 Mg Vial IM PRN PRN Hypoglycemia Protocol Glucose 15 gm 11/14/24 02:35 Glucose Oral Gel 15 Gm Of Glucse In 37.5 Gm Tube PO PRN PRN Hypoglycemia Protocol Hydromorphone HCl 1 mg 11/14/24 01:02 11/14/24 08:55 Hydromorphone Hcl Inj (*Crx) 2 Mg/Ml Vial IV PUSH 1 mg Q3H PRN Administration Pain Rated 7-10 Sodium Chloride 1,000 mls @ 125 mls/hr 11/13/24 18:55 11/14/24 23:52 Normal Saline Iv IV CONT 125 mls/hr .Q8H POOL Administration Metronidazole 500 mg in 100 mls @ 100 mls/hr 11/14/24 04:00 11/15/24 04:12 Flagyl 500 Mg/Iso Soln 100 Ml IVPB Infused Q8H POOL Infusion Aztreonam 1 gm/ Sodium 50 mls @ 100 mls/hr 11/14/24 04:00 11/15/24 05:17 Chloride IVPB 100 mls/hr Q8H POOL Administration Dextrose 1,000 mls @ 100 mls/hr 11/14/24 02:35 Dextrose 5% 1,000 Ml IVPB PRN PRN Hypoglycemia Protocol Insulin Aspart 2 - 5 units 11/14/24 08:00 11/15/24 08:44 Insulin Aspart (*Bkc) 100 Units/Ml SUB-Q Not Given TIDWM POOL Protocol Metoprolol Tartrate 5 mg 11/13/24 22:55 Metoprolol Tartrate Inj 5 Mg/5 Ml Vial IV PUSH Q4H PRN Hypertension Ondansetron HCl 4 mg 11/13/24 22:55 11/14/24 12:03 Ondansetron Inj 4 Mg/2 Ml Vial IV PUSH 4 mg Q4H PRN Administration Nausea And Vomiting Oxycodone HCl 5 mg 11/13/24 22:55 11/15/24 07:39 Oxycodone Hcl (*Crx) 5 Mg Tab Ir PO 5 mg Q4H PRN Administration Pain Rated 7-10 Pantoprazole Sodium 40 mg 11/14/24 09:00 11/15/24 08:46 Pantoprazole 40 Mg Tablet PO 40 mg QAM POOL Administration Prochlorperazine Edisylate 5 mg 11/14/24 15:26 Prochlorperazine Edisylate 10 Mg/2 Ml Vial IV PUSH Q6H PRN Nausea And Vomiting Labs Labs: Laboratory Results - last 24 hr 11/14/24 11/14/24 11/14/24 11:42 16:41 22:55 WBC RBC Hgb Hct MCV MCH MCHC RDW Plt Count MPV Immature Gran % (Auto) Neut % (Auto) Lymph % (Auto) [place] % (Auto) Eos % (Auto) Baso % (Auto) Lymph # (Auto) [place] # (Auto) Eos # (Auto) Baso # (Auto) Abs Immat Gran (auto) Absolute Neuts (auto) Absolute Nucleated RBC Nucleated RBC % Sodium Potassium Chloride Carbon Dioxide Anion Gap BUN Creatinine Estim Creat Clear Calc Estimated GFR Glucose POC Capillary Glucose 134 H 115 H 133 H Hemoglobin A1c Calcium Magnesium Triglycerides Cholesterol LDL Cholesterol Direct HDL Direct 11/15/24 11/15/24 05:26 08:12 WBC 10.7 H RBC 3.88 L Hgb 12.7 L Hct 36.7 L MCV 94.6 MCH 32.7 D MCHC 34.6 RDW 13.1 Plt Count 173 MPV 9.2 Immature Gran % (Auto) 0.6 H Neut % (Auto) 81.7 H Lymph % (Auto) 11.6 L [place] % (Auto) 5.9 Eos % (Auto) 0.0 Baso % (Auto) 0.2 Lymph # (Auto) 1.25 [place] # (Auto) 0.6 Eos # (Auto) 0.0 Baso # (Auto) 0.0 Abs Immat Gran (auto) 0.06 H Absolute Neuts (auto) 8.8 H Absolute Nucleated RBC 0.000 Nucleated RBC % 0.0 Sodium 137 Potassium 3.7 Chloride 107 Carbon Dioxide 22 Anion Gap 8 BUN 15 D Creatinine 1.09 Estim Creat Clear Calc 104 Estimated GFR > 60 Glucose 142 H POC Capillary Glucose 132 H Hemoglobin A1c 6.3 H Calcium 8.2 L Magnesium 2.1 Triglycerides 114 Cholesterol 163 LDL Cholesterol Direct 66 HDL Direct 33
[2024-11-15] MEDS: SODIUM CHLORIDE 0.9% IV 1,000 ML 125 ML IV CONT ×2 (11:38→22:23)
[2024-11-15 11:41] LABS: Add Urine Microscopic? YES; Appearance Urine Clear (Clear); Glucose Urine UA Negative (Negative); Leukocyte Esterase Ur Trace LEU/UL (Negative); Nitrate Urine Negative (Negative); Specific Grav Ur 1.018 (1.001-1.035)
--- NOTE | 2024-11-15 12:20 | ECG_ITS ---
Test Date: 2024-11-15 12:46:23 Measurements Intervals [place] Rate: 98 P: 6 IN: 144 QRS: -15 QRSD: 104 T: 1 QT: 350 QTc: 447 Interpretive Statements SINUS RHYTHM POOR R-WAVE PROGRESSION No previous ECG available for comparison Electronically Signed On 11-16-2024 18:38:52 CDT by Charles Mayorga M.D.
[2024-11-15] MEDS: PIPERACILLIN/TAZOBACTAM SOD 3.375 GM in SODIUM CHLORIDE 0.9% IV 50 ML 100 ML IVPB ×2 (13:54→19:59)
[2024-11-15] MEDS: HYDROcodone/acetaminophen (*CRX) 5-325 MG TABLET 1 TAB PO (19:59)
[2024-11-16] VITALS (10 sets, daily range): BP systolic 118–130; BP diastolic 76–83; PULSE 77–98; RESP 16–20; TEMP 36.5–37.1; O2SAT 96–98
--- NOTE | 2024-11-16 00:47 | PCRCNOTE ---
Patient is in a lot of pain and did not want to do apnea link tonight (11/15).
[2024-11-16] MEDS: PIPERACILLIN/TAZOBACTAM SOD 3.375 GM in SODIUM CHLORIDE 0.9% IV 50 ML 100 ML IVPB ×4 (01:16→20:36)
[2024-11-16] MEDS: BENZONATATE 100 MG CAPSULE PO ×4 (02:13→23:20)
[2024-11-16] MEDS: ONDANSETRON INJ 4 MG/2 ML VIAL IV PUSH ×3 (05:32→15:11)
[2024-11-16] MEDS: ACETAMINOPHEN 500 MG TABLET 1000 MG PO ×4 (05:32→23:25)
[2024-11-16 05:53] LABS: Hematocrit 37.7 % (42.0-52.0); Hemoglobin 13.3 g/dL (14.0-18.0); Mean Corpuscular HGB Conc 35.3 g/dl (32-36); Mean Corpuscular Hemoglobin 34.2 pg (26-34); Mean Corpuscular Volume 96.9 fl (80-100); Platelet Count Result 197 k/mm3 (150-375); Red Blood Count 3.89 M/mm3 (4.6-6.20); White Blood Count 11.7 K/mm3 (4.5-10.0)
[2024-11-16 06:10] LABS: Anion Gap 10 mmol/L (4-12); Blood Urea Nitrogen 11 mg/dL (9-20); Calcium 8.3 mg/dL (8.4-10.2); Carbon Dioxide 22 mmol/L (22-30); Chloride 108 mmol/L (98-107); Estimated CRCL calculation 144 ml/min; Estimated Glomerular Filt Rate > 60; Glucose 125 mg/dL (65-110); Potassium 4.1 mmol/L (3.4-5.0); Sodium 140 mmol/L (137-145)
[2024-11-16] MEDS: HYDROcodone/acetaminophen (*CRX) 5-325 MG TABLET 1 TAB PO (06:20)
[2024-11-16] MEDS: SODIUM CHLORIDE 0.9% IV 1,000 ML 125 ML IV CONT (07:12)
[2024-11-16 07:23] LABS: Band Neutrophils Percent 7 % (0-6); Lymphocytes Absolute Manual 1.40 K/mm3 (1.1-4.5); Lymphocytes Percent Manual 12.0 % (18-44); Monocytes Absolute Manual 0.35 K/mm3 (0.1-0.90); Monocytes Percent Manual 3 % (3-9); Neutrophils Absolute Manual 9.94 K/mm3 (1.3-6.7); Neutrophils Percent Manual 78 % (46-73); Schistocytes None Seen; Total Cells Counted 100
[2024-11-16] MEDS: ENOXAPARIN 40 MG/0.4 ML SYRINGE SUB-Q (08:30)
[2024-11-16] MEDS: PANTOPRAZOLE 40 MG TABLET PO (08:30)
--- NOTE | 2024-11-16 14:24 | PM.PNGS ---
Progress Note: A&P Assessment and Plan (1) Acute perforated appendicitis: Code(s): K35.32 - Acute appendicitis with perforation, localized peritonitis, and gangrene, without abscess Status: Acute Assessment and Plan: Slowly improving. Will advance to regular diet. Drain might be able to be removed tomorrow. Home tomorrow if pain improving and WBC going down. (2) Type 2 diabetes mellitus without complications: Qualifiers: Diabetes mellitus extermination supervisor insulin use: without extermination supervisor use Qualified Code(s): E11.9 - Type 2 diabetes mellitus without complications Code(s): E11.9 - Type 2 diabetes mellitus without complications Status: Acute Subjective Subjective Date/Time Seen: 11/16/24 14:24 Interval history: Bowels moving. No fevers. Pain a little better. Tolerating full liquids but still some nausea at times, might be related to pain meds as patient very sensitive to narcotics. Exam GI: Inspection: other (VIDHYA with minimal serous output) GI Palp: Yes Soft to palpation, Yes Tenderness to palpation present (GI) (incisional) and No Guarding due to palpation present (GI) Auscultation: normal bowel sounds Objective Data Vital Signs Vital Signs: Vital Signs - 24 hr 11/15/24 14:34 11/15/24 14:36 11/15/24 14:38 Temperature Pulse Rate 103 H 108 H 106 H Respiratory Rate Blood Pressure 131/78 122/82 125/74 Pulse Oximetry Oxygen Delivery 11/15/24 16:00 11/15/24 20:00 11/15/24 20:00 Temperature Pulse Rate 104 H 113 H Respiratory Rate Blood Pressure Pulse Oximetry Oxygen Delivery Room Air 11/15/24 22:00 11/16/24 00:00 11/16/24 04:00 Temperature 98.6 F Pulse Rate 103 H 93 94 Respiratory Rate 16 Blood Pressure 120/70 Pulse Oximetry 93 Oxygen Delivery 11/16/24 06:00 Temperature 98.8 F Pulse Rate 93 Respiratory Rate 18 Blood Pressure 127/76 Pulse Oximetry 96 Oxygen Delivery Intake/Output Intake/Output: Intake & Output 11/13/24 11/14/24 11/15/24 11/16/24 23:59 23:59 23:59 23:59 Intake Total 1000 4110 3840 1700 Output Total 20 1330 Balance 1000 4090 2510 1700 Meds/Results Medications: Active Medications Generic Name Dose Route Start Last Admin Trade Name Freq PRN Reason Stop Dose Admin Acetaminophen 1,000 mg 11/13/24 22:55 11/16/24 12:22 Acetaminophen 500 Mg Tablet PO 1,000 mg Q6H PRN Administration Mild Pain (1-3) or Fever Hydrocodone Bitart/Acetaminophen 1 tab 11/13/24 22:55 11/16/24 06:20 Hydrocodone/Acetaminophen (*Crx) 5-325 Mg Tablet PO 1 tab Q4H PRN Administration Pain Rated 4-6 Hydrocodone Bitart/Acetaminophen 1 tab 11/16/24 14:22 Hydrocodone/Acetaminophen (*Crx) 7.5-325 Mg Tablet PO Q4H PRN Pain Rated 7-10 Albuterol/Ipratropium 3 ml 11/13/24 22:01 Ipratropium 0.5 Mg/Albuterol Sulfate 2.5 Mg Ampul.Neb 3 Ml INHALATION Q6HRT PRN Wheezing Benzonatate 100 mg 11/13/24 22:01 11/16/24 08:30 Benzonatate 100 Mg Capsule PO 100 mg TID PRN Administration Cough Dextrose 12.5 gm 11/14/24 02:35 Dextrose 50% 25 Gm/50 Ml Syringe IV PUSH PRN PRN Hypoglycemia Protocol Diphenhydramine HCl 50 mg 11/15/24 12:50 Diphenhydramine Hcl Inj 50 Mg/Ml Vial IV PUSH ONCE PRN Itching/rash Enoxaparin Sodium 40 mg 11/14/24 09:00 11/16/24 08:30 Enoxaparin 40 Mg/0.4 Ml Syringe SUB-Q 40 mg DAILY POOL Administration Glucagon 1 mg 11/14/24 02:35 Glucagon For Inj 1 Mg Vial IM PRN PRN Hypoglycemia Protocol Glucose 15 gm 11/14/24 02:35 Glucose Oral Gel 15 Gm Of Glucse In 37.5 Gm Tube PO PRN PRN Hypoglycemia Protocol Guaifenesin/Dextromethorphan 10 ml 11/15/24 12:20 11/15/24 22:52 Guaifenesin/Dextromethorphan 10 Ml Udc PO 10 ml Q4H PRN Administration Cough Dextrose 1,000 mls @ 100 mls/hr 11/14/24 02:35 Dextrose 5% 1,000 Ml IVPB PRN PRN Hypoglycemia Protocol Piperacillin Sod/Tazobactam 50 mls @ 100 mls/hr 11/15/24 14:00 11/16/24 13:13 Sod 3.375 gm/ Sodium Chloride IVPB 100 mls/hr Q6H POOL Administration Ibuprofen 600 mg 11/16/24 14:22 Ibuprofen 600 Mg Tablet PO Q6H PRN Headache Insulin Aspart 2 - 5 units 11/14/24 08:00 11/16/24 12:22 Insulin Aspart (*Bkc) 100 Units/Ml SUB-Q Not Given TIDWM POOL Protocol Metoprolol Tartrate 5 mg 11/13/24 22:55 Metoprolol Tartrate Inj 5 Mg/5 Ml Vial IV PUSH Q4H PRN Hypertension Ondansetron HCl 4 mg 11/13/24 22:55 11/16/24 09:39 Ondansetron Inj 4 Mg/2 Ml Vial IV PUSH 4 mg Q4H PRN Administration Nausea And Vomiting Pantoprazole Sodium 40 mg 11/14/24 09:00 11/16/24 08:30 Pantoprazole 40 Mg Tablet PO 40 mg QAM POOL Administration Polyethylene Glycol 17 gm 11/15/24 12:55 11/16/24 08:30 Polyethylene Glycol 3350 17 Gm Powd.Pack PO 17 gm QAM POOL Administration Prochlorperazine Edisylate 5 mg 11/14/24 15:26 Prochlorperazine Edisylate 10 Mg/2 Ml Vial IV PUSH Q6H PRN Nausea And Vomiting Radiology Results: ITS Impressions Chest X-Ray 11/15/24 11:54 Impression: 1: Left basilar airspace disease may represent atelectasis or developing pneumonia. Labs Labs: Laboratory Results - last 24 hr 11/15/24 11/15/24 11/16/24 16:44 21:37 05:39 WBC 11.7 H RBC 3.89 L Hgb 13.3 L Hct 37.7 L MCV 96.9 MCH 34.2 H MCHC 35.3 RDW 13.3 Plt Count 197 MPV 9.0 Immature Gran % (Auto) Not Reportable Neut % (Auto) Not Reportable Lymph % (Auto) Not Reportable Glades % (Auto) Not Reportable Eos % (Auto) Not Reportable Baso % (Auto) Not Reportable Lymph # (Auto) Not Reportable Glades # (Auto) Not Reportable Eos # (Auto) Not Reportable Baso # (Auto) Not Reportable Abs Immat Gran (auto) Not Reportable Absolute Neuts (auto) Not Reportable Absolute Nucleated RBC Not Reportable Total Counted 100 Neutrophils % (Manual) 78 H Band Neutrophils % 7 H Lymphocytes % (Manual) 12.0 L Monocytes % (Manual) 3 Nucleated RBC % Not Reportable Abs Neuts (Manual) 9.94 H Abs Lymphs (Manual) 1.40 Abs Monocytes (Manual) 0.35 Platelet Estimate Adequate Schistocytes None seen Sodium 140 Potassium 4.1 Chloride 108 H Carbon Dioxide 22 Anion Gap 10 BUN 11 Creatinine 0.77 Estim Creat Clear Calc 144 Estimated GFR > 60 Glucose 125 H POC Capillary Glucose 134 H 148 H Calcium 8.3 L 11/16/24 11/16/24 08:09 12:13 WBC RBC Hgb Hct MCV MCH MCHC RDW Plt Count MPV Immature Gran % (Auto) Neut % (Auto) Lymph % (Auto) Glades % (Auto) Eos % (Auto) Baso % (Auto) Lymph # (Auto) Glades # (Auto) Eos # (Auto) Baso # (Auto) Abs Immat Gran (auto) Absolute Neuts (auto) Absolute Nucleated RBC Total Counted Neutrophils % (Manual) Band Neutrophils % Lymphocytes % (Manual) Monocytes % (Manual) Nucleated RBC % Abs Neuts (Manual) Abs Lymphs (Manual) Abs Monocytes (Manual) Platelet Estimate Schistocytes Sodium Potassium Chloride Carbon Dioxide Anion Gap BUN Creatinine Estim Creat Clear Calc Estimated GFR Glucose POC Capillary Glucose 121 H 133 H Calcium
[2024-11-16] MEDS: IBUPROFEN 600 MG TABLET PO (15:09)
--- NOTE | 2024-11-16 21:52 | PCRCNOTE ---
Pr refused Apnea Link said he would like it done in out patient at home.
[2024-11-16] MEDS: MELATONIN 5 MG TABLET PO (23:19)
[2024-11-17] VITALS (7 sets, daily range): BP systolic 120–128; BP diastolic 60–67; PULSE 86–103; RESP 18–20; TEMP 36.6–36.8; O2SAT 96–100
[2024-11-17] MEDS: PIPERACILLIN/TAZOBACTAM SOD 3.375 GM in SODIUM CHLORIDE 0.9% IV 50 ML 100 ML IVPB ×3 (02:20→14:14)
[2024-11-17] MEDS: IBUPROFEN 600 MG TABLET PO (02:32)
[2024-11-17 06:25] LABS: Hematocrit 31.0 % (42.0-52.0); Hemoglobin 11.3 g/dL (14.0-18.0); Immature Granulocyte Percent A 0.4 % (0-0.5); Lymphocytes Absolute Auto 1.16 K/mm3 (0.9-3.2); Mean Corpuscular HGB Conc 36.5 g/dl (32-36); Mean Corpuscular Hemoglobin 34.9 pg (26-34); Mean Corpuscular Volume 95.7 fl (80-100); Nucleated Red Blood Cells Absolute Auto 0.000 K/mm3 (0.0-0.012); Nucleated Red Blood Cells Perc 0.0 % (0.0-0.2); Platelet Count Result 206 k/mm3 (150-375); Red Blood Count 3.24 M/mm3 (4.6-6.20); White Blood Count 9.8 K/mm3 (4.5-10.0)
[2024-11-17 06:46] LABS: Anion Gap 5 mmol/L (4-12); Blood Urea Nitrogen 13 mg/dL (9-20); Calcium 8.6 mg/dL (8.4-10.2); Carbon Dioxide 28 mmol/L (22-30); Chloride 104 mmol/L (98-107); Estimated CRCL calculation 133 ml/min; Estimated Glomerular Filt Rate > 60; Glucose 118 mg/dL (65-110); Potassium 3.6 mmol/L (3.4-5.0); Sodium 137 mmol/L (137-145)
[2024-11-17] MEDS: ACETAMINOPHEN 500 MG TABLET 1000 MG PO ×2 (08:35→15:40)
[2024-11-17] MEDS: ENOXAPARIN 40 MG/0.4 ML SYRINGE SUB-Q (08:35)
[2024-11-17] MEDS: PANTOPRAZOLE 40 MG TABLET PO (08:35)
[2024-11-17] MEDS: ONDANSETRON INJ 4 MG/2 ML VIAL IV PUSH (08:35)
--- NOTE | 2024-11-17 08:41 | P.PNIM_ITS ---
Progress Note: A&P Assessment and Plan (1) Acute perforated appendicitis: Code(s): K35.32 - Acute appendicitis with perforation, localized peritonitis, and gangrene, without abscess Status: Acute (2) Sepsis: Qualifiers: Sepsis acute organ dysfunction status: with acute organ dysfunction Sepsis type: sepsis due to unspecified organism Severe sepsis acute organ dysfunction type: encephalopathy Severe sepsis shock status: without septic shock Qualified Code(s): A41.9 - Sepsis, unspecified organism; R65.20 - Severe sepsis without septic shock; G93.41 - Metabolic encephalopathy Code(s): A41.9 - Sepsis, unspecified organism Status: Acute (3) Type 2 diabetes mellitus without complications: Qualifiers: Diabetes mellitus admitting counselor insulin use: without nursing home use Qualified Code(s): E11.9 - Type 2 diabetes mellitus without complications Code(s): E11.9 - Type 2 diabetes mellitus without complications Status: Acute (4) Loud snoring: Code(s): R06.83 - Snoring Status: Acute (5) Hepatic steatosis: Code(s): K76.0 - Fatty (change of) liver, not elsewhere classified Status: Acute Plan Perforated appendicitis Sepsis Postop day 1 emergent laparoscopic cholecystectomy VIDHYA drain to right abdomen with serosanguineous drainage Abdomen mildly distended. Passing gas Surgery consulted, appreciate recommendations --Following drain output --IV fluids, encourage PO --Continuing antibiotics: Tolerating Zosyn. Remote history of mild rash as a child. Discussed with pharmacy and tested PCN allergy --Changed Aztreonam, Flagyl to Zosyn and tolerating, no rash. Bendryl prn dose ordered Discuss antibiotics for discharge with surgery, removed allergy to penicillin since tolerating Zosyn Cough Headache, nausea and loose stools Tessalon perles, guaifenesin prn --Viral swab for COVID, FLU, RSV Acute pain Due to perforated appendicitis and postop pain --Acetaminophen, Oxy, dilaudid p.r.n. Would like tylenol and ibuprofen for home --Hold miralax today for loose stools Tachycardia Dizziness EKG NSR, poor R wave progression. Recheck ekg On fluids On Lovenox for DVT prophylaxis. No chest or leg pain. Nausea/Vomiting No nausea this morning. --Zofran/ Compazine p.r.n. Zofran prn for home --recommended increased activity Elevated blood sugars Prediabetes Diet controlled. Blood sugar 174 on arrival, likely stress response. 132-155 today --Continue Acetaminophen, Oxy, dilaudid p.r.n. --If blood sugars trending up, add SSI -- HgbA1c 6.3, prediabetic. Discussed glucometer for home, diet control. me tformin after acute illness --Will need a glucometer and test strips/lancets for home, daily testing Dysuria Reported pain when voiding 11/14 and hematuria. RN reports urine was dark but not bloody. Dysuria resolved -- UA negative for infection, 1+ protein. Acute respiratory failure with hypoxia Snoring Required 2L O2 this morning, RA this afternoon, 93%, 97% with deep breaths --Outpatient sleep study --Apnealink tonight if still inpatient --Wean O2 as tolerated Hepatic steatosis Statin outpatient. Lipid profile was normal Time Spent With Patient Time: 57 minutes Subjective Date/time seen: 11/17/24 10:20 Interval history: Nausea today Had a headache and chills overnight. Has a cough and wheezing on exam. Checking a viral swab Trial of an albuterol inhaler Dizziness improving VIDHYA output minimal On Zosyn. Review of Systems Review of Systems: 12 systems were reviewed with pertinent positives and negatives per HPI. Except as documented in the HPI, all other systems were reviewed and are negative. Exam Narrative: General - Awake and alert. No acute distress Eyes - PERRLA, EOM intact ENT - No thrush, No erythema Neck - No noticeable or palpable swelling Lymph Nodes - No lymphadenopathy Cardiovascular - RRR no m/r/g, no JVD Lungs: Clear to auscultation, Wheezing to RLL. No use of accessory muscles, no crackles or wheezes. Skin - Skin warm and dry, no wounds or rashes Abdomen - Normal bowel sounds, abdomen soft and nontender, Mildly distended. Right VIDHYA drain with pink drainage Extremities - Trace generalized nonpitting edema, cyanosis or clubbing Musculoskeletal - 5/5 strength, normal range of motion, no swollen or erythematous joints. Neurological ? Alert and oriented x 3, CN 2-12 grossly intact. Psych: Normal mood and affect Objective Data Vital Signs Vital Signs: Vital Signs - 24 hr 11/16/24 12:00 11/16/24 14:00 11/16/24 16:00 Temperature 97.7 F Pulse Rate 96 77 95 Respiratory Rate 16 Blood Pressure 118/83 Pulse Oximetry 98 Oxygen Delivery Fraction of Inspired Oxygen 11/16/24 20:00 11/16/24 20:00 11/16/24 21:50 Temperature Pulse Rate 98 87 Respiratory Rate 20 Blood Pressure Pulse Oximetry 97 Oxygen Delivery Room Air Room Air Fraction of Inspired Oxygen 21 11/16/24 22:28 11/17/24 00:00 11/17/24 04:00 Temperature 98.6 F Pulse Rate 89 86 86 Respiratory Rate 18 Blood Pressure 130/82 Pulse Oximetry 97 Oxygen Delivery Fraction of Inspired Oxygen 11/17/24 06:00 Temperature 98.2 F Pulse Rate 87 Respiratory Rate 20 Blood Pressure 120/67 Pulse Oximetry 98 Oxygen Delivery Fraction of Inspired Oxygen Intake/Output Intake/Output: Intake & Output 11/14/24 11/15/24 11/16/24 11/17/24 23:59 23:59 23:59 23:59 Intake Total 4110 3840 3760 1050 Output Total 20 1330 0 Balance 4090 2510 3760 1050 Meds/Results Medications: Active Medications Generic Name Dose Route Start Last Admin Trade Name Freq PRN Reason Stop Dose Admin Acetaminophen 1,000 mg 11/13/24 22:55 11/17/24 08:35 Acetaminophen 500 Mg Tablet PO 1,000 mg Q6H PRN Administration Mild Pain (1-3) or Fever Hydrocodone Bitart/Acetaminophen 1 tab 11/13/24 22:55 11/16/24 06:20 Hydrocodone/Acetaminophen (*Crx) 5-325 Mg Tablet PO 1 tab Q4H PRN Administration Pain Rated 4-6 Hydrocodone Bitart/Acetaminophen 1 tab 11/16/24 14:22 Hydrocodone/Acetaminophen (*Crx) 7.5-325 Mg Tablet PO Q4H PRN Pain Rated 7-10 Albuterol/Ipratropium 3 ml 11/13/24 22:01 Ipratropium 0.5 Mg/Albuterol Sulfate 2.5 Mg Ampul.Neb 3 Ml INHALATION Q6HRT PRN Wheezing Benzonatate 100 mg 11/13/24 22:01 11/16/24 23:20 Benzonatate 100 Mg Capsule PO 100 mg TID PRN Administration Cough Dextrose 12.5 gm 11/14/24 02:35 Dextrose 50% 25 Gm/50 Ml Syringe IV PUSH PRN PRN Hypoglycemia Protocol Diphenhydramine HCl 50 mg 11/15/24 12:50 Diphenhydramine Hcl Inj 50 Mg/Ml Vial IV PUSH ONCE PRN Itching/rash Enoxaparin Sodium 40 mg 11/14/24 09:00 11/17/24 08:35 Enoxaparin 40 Mg/0.4 Ml Syringe SUB-Q 40 mg DAILY POOL Administration Glucagon 1 mg 11/14/24 02:35 Glucagon For Inj 1 Mg Vial IM PRN PRN Hypoglycemia Protocol Glucose 15 gm 11/14/24 02:35 Glucose Oral Gel 15 Gm Of Glucse In 37.5 Gm Tube PO PRN PRN Hypoglycemia Protocol Guaifenesin/Dextromethorphan 10 ml 11/15/24 12:20 11/17/24 08:35 Guaifenesin/Dextromethorphan 10 Ml Udc PO 10 ml Q4H PRN Administration Cough Dextrose 1,000 mls @ 100 mls/hr 11/14/24 02:35 Dextrose 5% 1,000 Ml IVPB PRN PRN Hypoglycemia Protocol Piperacillin Sod/Tazobactam 50 mls @ 100 mls/hr 11/15/24 14:00 11/17/24 02:50 Sod 3.375 gm/ Sodium Chloride IVPB Infused Q6H POOL Infusion Ibuprofen 600 mg 11/16/24 14:22 11/17/24 02:32 Ibuprofen 600 Mg Tablet PO 600 mg Q6H PRN Administration Headache Insulin Aspart 2 - 5 units 11/14/24 08:00 11/17/24 08:36 Insulin Aspart (*Bkc) 100 Units/Ml SUB-Q Not Given TIDWM POOL Protocol Melatonin 5 mg 11/16/24 21:15 11/16/24 23:19 Melatonin 5 Mg Tablet PO 5 mg HS POOL Administration Metoprolol Tartrate 5 mg 11/13/24 22:55 Metoprolol Tartrate Inj 5 Mg/5 Ml Vial IV PUSH Q4H PRN Hypertension Ondansetron HCl 4 mg 11/13/24 22:55 11/17/24 08:35 Ondansetron Inj 4 Mg/2 Ml Vial IV PUSH 4 mg Q4H PRN Administration Nausea And Vomiting Pantoprazole Sodium 40 mg 11/14/24 09:00 11/17/24 08:35 Pantoprazole 40 Mg Tablet PO 40 mg QAM POOL Administration Polyethylene Glycol 17 gm 11/15/24 12:55 11/17/24 08:36 Polyethylene Glycol 3350 17 Gm Powd.Pack PO Not Given QAM POOL Prochlorperazine Edisylate 5 mg 11/14/24 15:26 Prochlorperazine Edisylate 10 Mg/2 Ml Vial IV PUSH Q6H PRN Nausea And Vomiting Radiology Results: ITS Impressions Chest X-Ray 11/15/24 11:54 Impression: 1: Left basilar airspace disease may represent atelectasis or developing pneumonia. Labs Labs: Laboratory Results - last 24 hr 11/16/24 11/16/24 11/16/24 12:13 17:38 21:44 WBC RBC Hgb Hct MCV MCH MCHC RDW Plt Count MPV Immature Gran % (Auto) Neut % (Auto) Lymph % (Auto) Stephens % (Auto) Eos % (Auto) Baso % (Auto) Lymph # (Auto) Stephens # (Auto) Eos # (Auto) Baso # (Auto) Abs Immat Gran (auto) Absolute Neuts (auto) Absolute Nucleated RBC Nucleated RBC % Sodium Potassium Chloride Carbon Dioxide Anion Gap BUN Creatinine Estim Creat Clear Calc Estimated GFR Glucose POC Capillary Glucose 133 H 120 H 173 H Calcium 11/17/24 11/17/24 06:10 08:30 WBC 9.8 RBC 3.24 L Hgb 11.3 L Hct 31.0 L MCV 95.7 MCH 34.9 H MCHC 36.5 H RDW 13.2 Plt Count 206 MPV 8.9 Immature Gran % (Auto) 0.4 Neut % (Auto) 80.8 H Lymph % (Auto) 11.9 L Stephens % (Auto) 5.6 Eos % (Auto) 1.1 Baso % (Auto) 0.2 Lymph # (Auto) 1.16 Stephens # (Auto) 0.6 Eos # (Auto) 0.1 Baso # (Auto) 0.0 Abs Immat Gran (auto) 0.04 H Absolute Neuts (auto) 7.9 H Absolute Nucleated RBC 0.000 Nucleated RBC % 0.0 Sodium 137 Potassium 3.6 Chloride 104 Carbon Dioxide 28 Anion Gap 5 BUN 13 Creatinine 0.84 Estim Creat Clear Calc 133 Estimated GFR > 60 Glucose 118 H POC Capillary Glucose 112 H Calcium 8.6 Quality VTE Prophylaxis VTE prophylaxis: pharmacologic ordered (Lovenox 40 mg subQ daily.) Hospitalist [facility] Advance Care Plan I have confirmed that the patient's Advanced Care Plan is present, code status is documented, or surrogate decision maker is listed in patient medical record.: Yes Medication Reconciliation I have utilized all available resources to obtain, update and review the patients current medications (includes all prescriptions, OTC, herbals, cannabis, and nutritional supplements).: Yes
[2024-11-17] MEDS: POTASSIUM CHLORIDE 10 MEQ ER TABLET PO (11:07)
[2024-11-17] MEDS: BENZONATATE 100 MG CAPSULE PO (11:07)
[2024-11-17] MEDS: ALBUTEROL SULFATE (*SP) AEROSOL 1 PUFF 2 PUFF INHALATION ×2 (12:50→15:50)
--- NOTE | 2024-11-17 14:02 | P.DS_ITS ---
DS: Admitting Diagnosis Discharge Date 11/17/2024 Admitting Diagnosis Acute perforated appendicitis, sepsis, type 2 diabetes DS: Discharge Diagnosis Discharge Diagnosis (1) Acute perforated appendicitis: Code(s): K35.32 - Acute appendicitis with perforation, localized peritonitis, and gangrene, without abscess Status: Acute (2) Type 2 diabetes mellitus without complications: Qualifiers: Diabetes mellitus joint terminal attack controller insulin use: without joint terminal attack controller use Qualified Code(s): E11.9 - Type 2 diabetes mellitus without complications Code(s): E11.9 - Type 2 diabetes mellitus without complications Status: Acute DS: Summary Hospital Course Reason for hospitalization: Acute perforated appendicitis Hospital Course: This is a 44-year-old man who presented to the emergency department 11/13/2024 with worsening abdominal pain. He was found have evidence of likely perforated appendicitis. He underwent laparoscopic appendectomy by Dr. Bain. He was then admitted postoperatively for continued management. He was found to have evidence of perforated appendicitis with phlegmon around the area of the appendix and cecum. There were couple large appendicoliths within the appendix as well. A drain was placed at the time of surgery and he was kept on broad- spectrum IV antibiotics. Hospitalist was consulted for medical management. On postop day 1 he was mostly having some nausea and postoperative pain. He was showing signs of a possible mild ileus with hypoactive bowel sounds. He was initially on kept on a clear liquid diet. On postop day 2 he was advanced to a full liquid diet. His pain was a little better controlled. On postop day 3 he was advanced to regular diet. He had been complaining of a cough and was started on Tessalon Perles. He was remaining hemodynamically stable. His white blood count was normal on 11/17 and he was remaining afebrile. His drain was removed on 11/17/2024 and he was discharged home. Status at Discharge Functional status at discharge: independent ambulation Time Spent with Patient Time attestation: Total time spent providing and/or coordinating discharge services: Time spent: Less than 30 minutes Exam Const: General: comfortable and no acute distress GI: Inspection: incision (intact with glue) and other (serous output in drain) GI Palp: Yes Soft to palpation, No Tenderness to palpation present (GI) and No Guarding due to palpation present (GI) Auscultation: normal bowel sounds DS: Data Data Completed and Pending Completed studies during hospitalization: Pending at discharge 11/13/24 21:18 Surgical [PTH] Routine Final Diagnosis Appendix, appendectomy: - Perforated acute appendicitis Reviewed and Electronically Signed by: Rl Martinez MD 11/15/24 1616 Labs on day of discharge: Labs from last 24 hours 11/17/24 11/17/24 11/17/24 12:13 08:30 06:10 WBC 9.8 RBC 3.24 L Hgb 11.3 L Hct 31.0 L MCV 95.7 MCH 34.9 H MCHC 36.5 H RDW 13.2 Plt Count 206 MPV 8.9 Immature Gran % (Auto) 0.4 Neut % (Auto) 80.8 H Lymph % (Auto) 11.9 L Nelson % (Auto) 5.6 Eos % (Auto) 1.1 Baso % (Auto) 0.2 Lymph # (Auto) 1.16 Nelson # (Auto) 0.6 Eos # (Auto) 0.1 Baso # (Auto) 0.0 Abs Immat Gran (auto) 0.04 H Absolute Neuts (auto) 7.9 H Absolute Nucleated RBC 0.000 Nucleated RBC % 0.0 Sodium 137 Potassium 3.6 Chloride 104 Carbon Dioxide 28 Anion Gap 5 BUN 13 Creatinine 0.84 Estim Creat Clear Calc 133 Estimated GFR > 60 Glucose 118 H POC Capillary Glucose 112 H 112 H Calcium 8.6 11/16/24 11/16/24 21:44 17:38 WBC RBC Hgb Hct MCV MCH MCHC RDW Plt Count MPV Immature Gran % (Auto) Neut % (Auto) Lymph % (Auto) Nelson % (Auto) Eos % (Auto) Baso % (Auto) Lymph # (Auto) Nelson # (Auto) Eos # (Auto) Baso # (Auto) Abs Immat Gran (auto) Absolute Neuts (auto) Absolute Nucleated RBC Nucleated RBC % Sodium Potassium Chloride Carbon Dioxide Anion Gap BUN Creatinine Estim Creat Clear Calc Estimated GFR Glucose POC Capillary Glucose 173 H 120 H Calcium Preliminary micro results at discharge 11/13/24 18:54 Blood Culture - Preliminary Blood 11/13/24 23:39 Blood Culture - Preliminary Blood Discharge Plan Discharge Attending physician on discharge: Redd Bain Consulting providers: Redd Bain Discharging Clinician: Chris Salmeron Patient Disposition: Home Activity: other - see discharge instructions Diet: regular and diabetic Wound Care Instructions: other - see discharge instructions Discharge Instructions: * Okay to shower tomorrow, no bathing or soaking for 2 weeks * Remove bandage prior to showering, may real apply bandage after showers for the 1st 1-2 days until wound appears completely sealed * No lifting greater than 10 lb for 2 weeks * May drive in 2-3 days * Take OTC Tylenol or ibuprofen as needed for pain * Prescription for Zofran sent to the pharmacy as needed for nausea * Follow-up with PCP if cough persists Patient Instructions: Antibiotic Form Patient Language: Czech Stand Alone Forms: General Discharge Information Follow-up/Referrals: Yosi Melara MD [Primary Care Provider] - Redd Bain MD [Physician] - Call for Appointment Discharge Medications: New amoxicillin-pot clavulanate 875-125 mg tablet 1 tablet PO Q12H 10 Days Qty: 20 0RF benzonatate 100 mg capsule 100 mg PO TID PRN (Reason: cough) Qty: 30 0RF ondansetron 4 mg tablet,disintegrating 4 mg PO Q6H PRN (Reason: nausea and vomiting) Qty: 10 0RF Continued No Home Medications Date of admission: 11/13/24 22:04 Primary Care Provider: Yosi Melara Admitting Provider: Redd Bain Attending physician on admission: Redd Bain Condition: Improved
[2024-11-17 15:00] LABS: Influenza A QL RT-PCR Negative (Negative); Influenza B QL RT-PCR Negative (Negative); RSV RNA, RT-PCR Negative (Negative); SARS-CoV-2 RNA PCR Negative (Negative)
--- NOTE | 2024-11-25 16:11 | PCCDE ---
Courtesy DM educator follow up call completed. Pt denies questions, has PCP appt x 3 wks.
== END 2024-11-17 16:00 | disposition home or self-care (01) | DRG 853 ==
LOC: ANHED 18:59 → ANHSURGERY 19:34 → ANH3MED 23:02
PROVIDERS: Emergency Medicine; Internal Medicine; Nurse Practitioner Acute Care; Admitting Provider Surgery; Emergency Provider Physician Assistant; PCP Family Medicine; Visit Provider Surgery
PROC: 0DTJ4ZZ Resection of Appendix, Percutaneous Endoscopic Approach (ICD-10-PCS; CPT 44970; principal; 2024-11-13 20:00)
DX: A41.9 Sepsis, unspecified organism (principal); G93.41 Metabolic encephalopathy; K35.32 Acute appendicitis with perforation, localized peritonitis, and gangrene, without abscess; J96.01 Acute respiratory failure with hypoxia; J18.9 Pneumonia, unspecified organism; Z68.41 Body mass index [BMI] 40.0-44.9, adult; J98.11 Atelectasis; R65.20 Severe sepsis without septic shock; K38.1 Appendicular concretions; E78.5 Hyperlipidemia, unspecified; I10 Essential (primary) hypertension; E11.9 Type 2 diabetes mellitus without complications; E66.01 Morbid (severe) obesity due to excess calories; K40.90 Unilateral inguinal hernia, without obstruction or gangrene, not specified as recurrent; K76.0 Fatty (change of) liver, not elsewhere classified; G47.33 Obstructive sleep apnea (adult) (pediatric); Z20.822 Contact with and (suspected) exposure to COVID-19; R31.9 Hematuria, unspecified; R11.2 Nausea with vomiting, unspecified; R30.0 Dysuria
CPT/HCPCS: 36415; 71046; 74177; 80048; 80053; 80061; 81001; 82948; 83036; 83605; 83690; 83735; 85025; 87040; 87637; 88304; 93005; 94640; 96361; 96365; 96367; 96375; 96376; 99285; A9270; J0457; J0696; J1100; J1171; J1650; J1836; J1885; J2003; J2004; J2250; J2270; J2405; J2543; J2704; J3010; J7030; J7120; Q9967